=== PATIENT | male | born 1970 | race Caucasian/White ===

== ENCOUNTER 2018-06-21 14:47 | Inpatient (IN) | payer BC, OTHER ==
[2018-06-21] MEDS ORDERED: SODIUM CHLORIDE 0.9% 1,000 ML IV STA (15:41)
[2018-06-21] MEDS ORDERED: ONDANSETRON 4 MG/2 ML VIAL IVP STA (15:56)
--- NOTE | 2018-06-21 15:56 | ED ---
General Adult HPI - General Chief complaint: Overdose Stated complaint: overdose Time Seen by Provider: 06/21/18 15:00 Source: patient, family, RN notes reviewed Mode of arrival: wheelchair Limitations: no limitations - History of Present Illness Initial comments: 47-year-old male who presents emergency Department stating that he took a bunch of his [place]. states all but maybe 10 or so were left in the bottle that he had filled yesterday which was a quantity of 120. Patient states she took probably be 50 believes there is 100 gone. Patient states he took him at 4 AM thinks it was more like 5:00 because that is when he texture. Patient seems very tired according and seems to have some decreased hearing according to the since he states the pills. Patient states she was not trying to commit suicide. states the patient admitted on a text that he was trying to kill himself. Patient states he was drinking last night. Patient states he has not taken anything else since then no other pills and no other drugs and hasn't drank anything today. - Related Data Home Medications Medication Instructions Recorded Confirmed HYDROcodone/APAP 7.5-325MG [[place] 1 tab PO Q6HR PRN 05/19/16 06/21/18 7.5-325] Allergies Allergy/AdvReac Type Severity Reaction Status Date / Time ketorolac tromethamine Allergy Anaphylaxis Verified 06/21/18 17:42 [From Toradol] tramadol Allergy Anaphylaxis Verified 06/21/18 17:42 Review of Systems ROS Statement: Those systems with pertinent positive or pertinent negative responses have been documented in the HPI. ROS Other: All systems not noted in ROS Statement are negative. Past Medical History Past Medical History: Hyperlipidemia Additional Past Medical History / Comment(s): severe arthritis lumbar and cervical History of Any Multi-Drug Resistant Organisms: None Reported Past Surgical History: Orthopedic Surgery Additional Past Surgical History / Comment(s): right leg anyi/screws. bilateral inguinal hernia Past Psychological History: Anxiety, Depression Smoking Status: Current every day smoker Past Alcohol Use History: Occasional Past Drug Use History: Marijuana General Exam - General Exam Comments Initial Comments: GENERAL: Patient is well-developed and well-nourished. Patient is nontoxic and well- hydrated and is in no acute distress. Patient is lethargic but able to answer all questions. ENT: Neck is soft and supple. No significant lymphadenopathy is noted. Oropharynx is clear. Moist mucous membranes. Neck has full range of motion without eliciting any pain. EYES: The sclera were anicteric and conjunctiva were pink and moist. Extraocular movements were intact and pupils are pinpoint. Eyelids were unremarkable. PULMONARY: Unlabored respirations. Good breath sounds bilaterally. No audible rales rhonchi or wheezing was noted. CARDIOVASCULAR: There is a regular rate and rhythm without any murmurs gallops or rubs. ABDOMEN: Soft and nontender with normal bowel sounds. No palpable organomegaly was noted. There is no palpable pulsatile mass. SKIN: Skin is clear with no lesions or rashes and otherwise unremarkable. NEUROLOGIC: Patient is alert and oriented x3. Cranial nerves II through XII are grossly intact. Motor and sensory are also intact. Normal speech, volume and content. Symmetrical smile. MUSCULOSKELETAL: Normal extremities with adequate strength and full range of motion. LYMPHATICS: No significant lymphadenopathy is noted PSYCHIATRIC: Patient states he did take the pills but he states he was not trying to kill himself Limitations: no limitations Course Vital Signs 06/21/18 15:00 Temperature 97.5 F L Pulse Rate 88 Respiratory 20 Rate Blood Pressure 119/85 O2 Sat by Pulse 96 Oximetry Medical Decision Making - Medical Decision Making EKG shows normal sinus rhythm at 74 bpm SC interval 160 QRS is 96 QT interval 390 QTC is 432. Patient's EKG shows no ST segment elevation or depression or T wave abnormalities are noted. - Lab Data Result diagrams: 06/21/18 16:20 06/21/18 16:20 Lab Results 06/21/18 06/21/18 06/21/18 Range/Units 15:28 16:20 16:20 WBC 20.9 H (3.8-10.6) k/uL RBC 5.03 (4.30-5.90) m/uL Hgb 16.7 (13.0-17.5) gm/dL Hct 51.4 (39.0-53.0) % MCV 102.2 H (80.0-100.0) fL MCH 33.2 (25.0-35.0) pg MCHC 32.5 (31.0-37.0) g/dL RDW 12.5 (11.5-15.5) % Plt Count 284 (150-450) k/uL Neutrophils % 92 % Lymphocytes % 4 % Monocytes % 3 % Eosinophils % 1 % Basophils % 0 % Neutrophils # 19.2 H (1.3-7.7) k/uL Lymphocytes # 0.7 L (1.0-4.8) k/uL Monocytes # 0.6 (0-1.0) k/uL Eosinophils # 0.3 (0-0.7) k/uL Basophils # 0.0 (0-0.2) k/uL Macrocytosis Slight Sodium 142 (137-145) mmol/L Potassium 5.5 H (3.5-5.1) mmol/L Chloride 109 H (98-107) mmol/L Carbon Dioxide 18 L (22-30) mmol/L Anion Gap 15 mmol/L BUN 15 (9-20) mg/dL Creatinine 1.00 (0.66-1.25) mg/dL Est GFR (CKD-EPI)AfAm >90 (>60 ml/min/1.73 sqM) Est GFR (CKD-EPI)NonAf 89 (>60 ml/min/1.73 sqM) Glucose 88 (74-99) mg/dL Calcium 9.2 (8.4-10.2) mg/dL Total Bilirubin 0.3 (0.2-1.3) mg/dL AST 45 (17-59) U/L ALT 41 (21-72) U/L Alkaline Phosphatase 59 (38-126) U/L Total Protein 8.4 H (6.3-8.2) g/dL Albumin 5.2 H (3.5-5.0) g/dL Salicylates <1.0 mg/dL Urine Opiates Screen Detected H (NotDetected) Ur Oxycodone Screen Detected H (NotDetected) Urine Methadone Screen Not Detected (NotDetected) Ur Propoxyphene Screen Not Detected (NotDetected) Acetaminophen 84.0 H* ug/mL Ur Barbiturates Screen Not Detected (NotDetected) U Tricyclic Antidepress Not Detected (NotDetected) Ur Phencyclidine Scrn Not Detected (NotDetected) Ur Amphetamines Screen Not Detected (NotDetected) U Methamphetamines Scrn Not Detected (NotDetected) U Benzodiazepines Scrn Detected H (NotDetected) Urine Cocaine Screen Not Detected (NotDetected) U Marijuana (THC) Screen Not Detected (NotDetected) Serum Alcohol 18 mg/dL Critical Care Time Critical Care Time: Yes Total Critical Care Time: 35 Disposition Clinical Impression: Acetaminophen overdose, Suicidal ideation Disposition: ADMITTED IP TO THIS HOSP Referrals: Hortencia Buenrostro MD [Primary Care Provider] - 1-2 days Time of Disposition: 17:34
[2018-06-21 16:07] LABS: Amphetamine Screen,Urine Not Detected (NotDetected); Barbiturate Screen,Urine Not Detected (NotDetected); Benzodiazepines Screen,Urine Detected (NotDetected); Cocaine Screen,Urine Not Detected (NotDetected); Methadone Screen, Urine Not Detected (NotDetected); Opiate Screen,Urine Detected (NotDetected); Oxycodone Screen, Urine Detected (NotDetected); Phencyclidine Screen,Urine Not Detected (NotDetected); Tricyclic Antidepressant,Urine Not Detected (NotDetected); Urn Cannabinoid Scrn Not Detected (NotDetected)
[2018-06-21] MEDS ORDERED: diphenhydrAMINE 50 MG/ML 1 ML VIAL IVP ONE (16:21)
[2018-06-21] MEDS ORDERED: ACETYLCYSTEINE IV 10,200 MG in DEXTROSE 5% IN WATER 200 ML IV ONE ×2 (16:30)
[2018-06-21 16:35] LABS: Basophils % (A) 0 %; Eosinophils # (A) 0.3 k/uL (0-0.7); Eosinophils % (A) 1 %; HCT 51.4 % (39.0-53.0); HGB 16.7 gm/dL (13.0-17.5); Lymphocytes # (A) 0.7 k/uL (1.0-4.8); Lymphocytes % (A) 4 %; MCH 33.2 pg (25.0-35.0); MCHC 32.5 g/dL (31.0-37.0); MCV 102.2 fL (80.0-100.0); Macrocytosis Slight; Mean Platelet Volume 6.6; Monocytes # (A) 0.6 k/uL (0-1.0); Monocytes % (A) 3 %; Neutrophils # (A) 19.2 k/uL (1.3-7.7); Neutrophils % (A) 92 %; Platelet Count 284 k/uL (150-450); RBC 5.03 m/uL (4.30-5.90); RDW 12.5 % (11.5-15.5); WBC 20.9 k/uL (3.8-10.6)
[2018-06-21 16:42] LABS: ALT 41 U/L (21-72); AST 45 U/L (17-59); Albumin 5.2 g/dL (3.5-5.0); Alcohol 18 mg/dL; Alkaline Phosphatase 59 U/L (38-126); Anion Gap 15 mmol/L; Blood Urea Nitrogen 15 mg/dL (9-20); Calcium 9.2 mg/dL (8.4-10.2); Carbon Dioxide 18 mmol/L (22-30); Chloride 109 mmol/L (98-107); Glucose 88 mg/dL (74-99); Potassium 5.5 mmol/L (3.5-5.1); Salicylate <1.0 mg/dL; Sodium 142 mmol/L (137-145); Total Bilirubin 0.3 mg/dL (0.2-1.3); Total Protein 8.4 g/dL (6.3-8.2)
[2018-06-21] MEDS ORDERED: ACETYLCYSTEINE IV 3,400 MG in DEXTROSE 5% IN WATER 500 ML IV ONE ×4 (17:30→18:30)
[2018-06-21] MEDS ORDERED: SODIUM CHLORIDE 0.9% 1,000 ML IV ONE (17:33)
[2018-06-21 21:23] LABS: Glucose,Whole Blood 119 mg/dL (75-99)
[2018-06-21] MEDS ORDERED: ACETYLCYSTEINE IV 6,800 MG in DEXTROSE 5% IN WATER 1,000 ML IV ONE ×4 (21:30→23:00)
[2018-06-21 22:39] LABS: Partial Thromboplastin Time 22.1 sec (22.0-30.0); Prothrombin Time 10.2 sec (9.0-12.0)
[2018-06-21] MEDS: NICOTINE 21MG/24HR PATCH TRANSDERM SCH (23:09)
[2018-06-21] MEDS: ENOXAPARIN 40 MG/0.4 ML SYRINGE SQ SCH (23:09)
--- NOTE | 2018-06-21 23:12 | HP ---
HISTORY AND PHYSICAL DATE OF ADMISSION: June 21, 2018. DATE OF SERVICE: June 21, 2018. PRESENT COMPLAINT: Overdose [place]. HISTORY OF PRESENTING COMPLAINT: A 47-year-old patient follows with Dr. Hortencia Buenrostro. A history of anxiety but does not take any medications, hyperlipidemia, severe osteoarthritis of the cervical and lumbar spine for which she takes [place]. The patient smokes a pack a day. . The patient has been having issues with his and today decided to take a whole bunch of [place]. It seems patient took about at least 50 pills of [place] 7.5, and presented to the ER. Apparently had text his that he wanted to kill himself. Now he does feel stupid about the whole thing. The patient also drinking last night. Normally drinks about 6 beers a day. Denies taking other recreational drugs. The patient started on an in the ER. Does feel tired and run down. REVIEW OF SYSTEMS: CONSTITUTIONAL: Tired and run down. HEENT: None. RESPIRATORY: Occasional cough. CARDIOVASCULAR none. GASTROINTESTINAL none. GENITOURINARY: None. MUSCULOSKELETAL: Chronic backache in the spine. DERMATOLOGICAL, HEMATOLOGIC, LYMPHATIC: None. PSYCHIATRY: Very anxious, some depression. NEUROLOGICAL: None. PAST MEDICAL HISTORY: Hyperlipidemia, severe arthritis of the lumbar cervical spine. PAST SURGICAL HISTORY: Right leg rods and screws, bilateral inguinal hernia. SOCIAL HISTORY: The patient smokes about a pack a day for many years. 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 Drinks about 6 beers at least a day. Does marijuana occasionally. FAMILY HISTORY: Reviewed. Noncontributory to presentation. HOME MEDICATIONS: [place] 7.5 q.6h p.r.n. ALLERGIES: TO TORADOL AND TRAMADOL. PHYSICAL EXAMINATION: VITAL SIGNS: Temperature 97.6, pulse 72, respiratory 18, blood pressure 130/80, pulse ox 96% on 2 L. GENERAL APPEARANCE: Average build, lying in bed, anxious-appearing. EYES: Pupils equal., Conjunctivae normal. HEENT: External appearance of nose and ears normal. Oral cavity normal. NECK: JVD not raised. Mass not palpable. RESPIRATORY: Effort normal. LUNGS: Diminished breath sounds. CARDIOVASCULAR: 1st and 2nd sounds. No edema. ABDOMEN: Soft, nontender. Liver and spleen not palpable. LYMPHATICS: No lymph nodes palpable in the neck and axilla. PSYCHIATRY: Alert and oriented x3. Mood and affect anxious-appearing. NEUROLOGICAL: Pupils equal. Cranial nerves grossly intact. Power and sensation grossly intact. INVESTIGATIONS: White count 20.9, hemoglobin 16.7, potassium 5.5, BUN 50, creatinine 1.0. Acetaminophen 84. Urine drug screen positive for opiates, oxycodone, benzodiazepine. Serum alcohol was 18. EKG normal sinus rhythm. ASSESSMENT: 1. Acute severe acetaminophen overdose in the form of [place]. The patient had taken at least 50 tablets. It is known that this can adversely affect the liver, especially in the setting of patient drinking alcohol. Will have to watch patient's LFTs closely and also the patient is on pro-time. The patient will be admitted to the ICU with close monitoring and neuro checks. 2. Severe osteoarthritis of cervical and lumbar spine. 3. Hyperlipidemia. 4. Anxiety/depression uncontrolled. 5. Chronic nicotine dependence, patient is a cigarette smoker. PLAN: At this point, patient is being given , IV fluids. Lovenox for DVT prophylaxis. We will give nicotine patch. The patient has a sitter. Psychiatry has been consulted. 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 Care was discussed with the patient. Copy to Dr. Hortencia Buenrostro. BROCK / AYLIN: [id number] /
[2018-06-21 23:42] LABS: INR 1.2 (<1.2); Prothrombin Time 11.5 sec (9.0-12.0)
[2018-06-22 04:36] LABS: Basophils % (A) 0 %; Eosinophils # (A) 0.2 k/uL (0-0.7); Eosinophils % (A) 2 %; HCT 41.9 % (39.0-53.0); Lymphocytes # (A) 2.2 k/uL (1.0-4.8); Lymphocytes % (A) 19 %; MCH 33.6 pg (25.0-35.0); MCHC 32.7 g/dL (31.0-37.0); MCV 102.6 fL (80.0-100.0); Macrocytosis Slight; Mean Platelet Volume 6.7; Monocytes # (A) 0.7 k/uL (0-1.0); Monocytes % (A) 6 %; Neutrophils # (A) 8.4 k/uL (1.3-7.7); Neutrophils % (A) 72 %; Platelet Count 215 k/uL (150-450); RBC 4.09 m/uL (4.30-5.90); RDW 12.6 % (11.5-15.5); WBC 11.6 k/uL (3.8-10.6)
[2018-06-22 04:41] LABS: INR 1.2 (<1.2); Prothrombin Time 11.8 sec (9.0-12.0)
[2018-06-22 04:45] LABS: HGB 13.7 gm/dL (13.0-17.5)
[2018-06-22 05:04] LABS: ALT 37 U/L (21-72); AST 44 U/L (17-59); Acetaminophen <10.0 ug/mL; Albumin 3.5 g/dL (3.5-5.0); Alkaline Phosphatase 33 U/L (38-126); Anion Gap 3 mmol/L; Blood Urea Nitrogen 11 mg/dL (9-20); Calcium 7.7 mg/dL (8.4-10.2); Carbon Dioxide 25 mmol/L (22-30); Chloride 106 mmol/L (98-107); Glucose 93 mg/dL (74-99); Magnesium 2.2 mg/dL (1.6-2.3); Phosphorus 2.9 mg/dL (2.5-4.5); Potassium 4.3 mmol/L (3.5-5.1); Sodium 134 mmol/L (137-145); Total Bilirubin 0.3 mg/dL (0.2-1.3); Total Protein 5.9 g/dL (6.3-8.2)
[2018-06-22 05:18] VITALS: BMI 24.5
[2018-06-22] MEDS: ENOXAPARIN 40 MG/0.4 ML SYRINGE SQ SCH (08:47)
[2018-06-22] MEDS: NICOTINE 21MG/24HR PATCH TRANSDERM SCH (08:47)
[2018-06-22] MEDS ORDERED: PANTOPRAZOLE 40 MG/10 ML VIAL IV SCH (09:00)
--- NOTE | 2018-06-22 10:07 | P.CONS ---
History of Present Illness - Reason for Consult Consult date: 06/22/18 Acetaminophen toxicity Requesting physician: Johan Dumas - History of Present Illness 47-year-old male with a history of anxiety depression chronic alcohol consumption admitted with acetaminophen toxicity. Patient states he took a bottle of [place] on Wednesday night with alcohol cannot quantify how many tablets of [place]. Denies consumption of any other types of medications, aspirin or NSAIDs. Admission white count 20.9 presently 11.6. Hemoglobin 16.7 presently 13.7. MCV 102. Platelet 284. INR 1.0-1.2. Total bilirubin 0.3. AST 44-45. ALT 37-41. AP 33-59. BUN 11. Creatinine 0.7. Acetaminophen 84 presently less than 10 receiving intravenous acetylcysteine. Presently reports diffuse mild abdominal pain across the anterior abdomen. Denies hematemesis hematochezia melena. No fever. No history of known liver disorders. Patient has been drinking beer several cans a day for several years. He drank at least 8-10 beers on Wednesday. Review of Systems Constitutional: Denies fever, chills, sweats, weight gain, or loss. HEENT: Negative for migraines, blurred vision or loss, earaches, drainage, tinnitus, oral mucosal lesions, dysphagia, or odynophagia. Cardiac: Negative for chest pain, arrhythmias, or palpitation. Respiratory: Negative for shortness of breath, hemoptysis, cough, or sputum production. Gastrointestinal: See HPI for pertinent findings. Genitourinary: Negative for hematuria, urgency, frequency, polyuria, dysuria, or penile discharge. Musculoskeletal: Negative for muscle aches, swelling, arthritis, and arthralgias. Neurologic: Negative for stroke or TIA. Endocrine: Negative for thyroid problems. Skin: Negative for rash or itching. Psychiatric: history of depression and anxiety Past Medical History Past Medical History: Hyperlipidemia Additional Past Medical History / Comment(s): severe arthritis lumbar and cervical History of Any Multi-Drug Resistant Organisms: None Reported Past Surgical History: Orthopedic Surgery Additional Past Surgical History / Comment(s): right leg anyi/screws. bilateral inguinal hernia Past Anesthesia/Blood Transfusion Reactions: No Reported Reaction Past Psychological History: Anxiety, Depression Smoking Status: Current every day smoker Past Alcohol Use History: Daily Additional Past Alcohol Use History / Comment(s): pt drinks 1 or 2 beers every night after work and drinks about 12 beers each day on the weekends. Past Drug Use History: Marijuana Additional Drug Use History / Comment(s): stated that he uses marijuana occasionally for pain reflief but "not very often" Medications and Allergies Home Medications Medication Instructions Recorded Confirmed Type HYDROcodone/APAP 7.5-325MG [[place] 1 tab PO Q6HR PRN 05/19/16 06/21/18 History 7.5-325] Allergies Allergy/AdvReac Type Severity Reaction Status Date / Time ketorolac tromethamine Allergy Anaphylaxis Verified 06/21/18 17:42 [From Toradol] tramadol Allergy Anaphylaxis Verified 06/21/18 17:42 Physical Exam Vitals: Vital Signs Temp Pulse Resp BP Pulse Ox 06/22/18 09:00 87 24 126/78 96 06/22/18 08:00 98.9 F 82 24 126/80 94 L 06/22/18 07:00 65 16 130/85 97 06/22/18 06:00 70 23 129/80 94 L 06/22/18 05:00 75 15 134/81 97 06/22/18 04:00 98.1 F 66 13 119/70 99 06/22/18 03:00 67 11 L 129/80 97 06/22/18 02:00 66 12 116/81 98 06/22/18 01:00 64 22 132/69 98 06/22/18 00:00 98.5 F 63 21 129/86 97 06/21/18 23:00 74 19 131/79 95 06/21/18 22:11 97 06/21/18 22:00 98.4 F 75 15 139/71 97 06/21/18 20:43 97.6 F 78 18 131/80 96 06/21/18 20:15 97.9 F 75 18 129/80 97 06/21/18 19:27 78 18 140/83 96 06/21/18 18:50 81 18 124/81 96 06/21/18 18:27 78 18 121/81 97 06/21/18 17:57 82 18 134/91 96 06/21/18 17:27 80 18 127/89 96 06/21/18 16:57 76 18 116/86 97 06/21/18 16:27 74 18 125/76 97 06/21/18 15:00 97.5 F L 88 20 119/85 96 Intake and Output 06/21/18 06/22/18 06/22/18 22:59 06:59 14:59 Intake Total 229 1377 993.2 Output Total 1000 700 Balance 229 377 293.2 Intake: IV 229 1377 493.2 Acetylcysteine IV 3,400 129 129 mg In Dextrose 5% in Water 500 ml @ 129.25 mls /hr IV ONCE ONE Rx#: [id number] Acetylcysteine IV 6,800 448 193.2 mg In Dextrose 5% in Water 1,000 ml @ 64.625 mls/hr IV ONCE ONE Rx#: [id number] Sodium Chloride 0.9% 1, 100 800 300 000 ml @ 100 mls/hr IV . Q10H ONE Rx#:[id number] Oral 500 Output: Urine 1000 700 Other: Voiding Method Urinal Urinal Weight 66.9 kg 66.9 kg General appearance: The patient is alert, oriented, in no acute distress. HET: Head is normocephalic and atraumatic. Pupils are equal and reactive. Oropharynx is clear without lesions. Neck: Supple without lymphadenopathy. Trachea midline. Heart: S1 S2. Regular rate and rhythm. Lungs: No crackles or wheezes are heard. Abdomen: Soft, mild tenderness across mid abdomen, nondistended with bowel sounds. No peritoneal signs. No palpable organomegaly or masses. Extremities: Normal skin color and turgor. No cyanosis, rash, ulceration, clubbing, or edema. Radial and pedal pulses are 2/4 bilaterally. Neurological: No focal deficits. Strength and sensation are grossly intact. Results CBC & Chem 7: 06/22/18 04:21 06/22/18 04:21 Labs: Abnormal Lab Results - Last 24 Hours (Table) 06/21/18 06/21/18 06/21/18 Range/Units 15:28 16:20 16:20 WBC 20.9 H (3.8-10.6) k/uL RBC (4.30-5.90) m/uL MCV 102.2 H (80.0-100.0) fL Neutrophils # 19.2 H (1.3-7.7) k/uL Lymphocytes # 0.7 L (1.0-4.8) k/uL INR (<1.2) Sodium (137-145) mmol/L Potassium 5.5 H (3.5-5.1) mmol/L Chloride 109 H (98-107) mmol/L Carbon Dioxide 18 L (22-30) mmol/L POC Glucose (mg/dL) (75-99) mg/dL Calcium (8.4-10.2) mg/dL Alkaline Phosphatase (38-126) U/L Total Protein 8.4 H (6.3-8.2) g/dL Albumin 5.2 H (3.5-5.0) g/dL Urine Opiates Screen Detected H (NotDetected) Ur Oxycodone Screen Detected H (NotDetected) Acetaminophen 84.0 H* ug/mL U Benzodiazepines Scrn Detected H (NotDetected) 06/21/18 06/21/18 06/22/18 Range/Units 21:11 23:24 04:21 WBC (3.8-10.6) k/uL RBC (4.30-5.90) m/uL MCV (80.0-100.0) fL Neutrophils # (1.3-7.7) k/uL Lymphocytes # (1.0-4.8) k/uL INR 1.2 H 1.2 H (<1.2) Sodium (137-145) mmol/L Potassium (3.5-5.1) mmol/L Chloride (98-107) mmol/L Carbon Dioxide (22-30) mmol/L POC Glucose (mg/dL) 119 H (75-99) mg/dL Calcium (8.4-10.2) mg/dL Alkaline Phosphatase (38-126) U/L Total Protein (6.3-8.2) g/dL Albumin (3.5-5.0) g/dL Urine Opiates Screen (NotDetected) Ur Oxycodone Screen (NotDetected) Acetaminophen ug/mL U Benzodiazepines Scrn (NotDetected) 06/22/18 06/22/18 Range/Units 04:21 04:21 WBC 11.6 H (3.8-10.6) k/uL RBC 4.09 L (4.30-5.90) m/uL MCV 102.6 H (80.0-100.0) fL Neutrophils # 8.4 H (1.3-7.7) k/uL Lymphocytes # (1.0-4.8) k/uL INR (<1.2) Sodium 134 L (137-145) mmol/L Potassium (3.5-5.1) mmol/L Chloride (98-107) mmol/L Carbon Dioxide (22-30) mmol/L POC Glucose (mg/dL) (75-99) mg/dL Calcium 7.7 L (8.4-10.2) mg/dL Alkaline Phosphatase 33 L (38-126) U/L Total Protein 5.9 L (6.3-8.2) g/dL Albumin (3.5-5.0) g/dL Urine Opiates Screen (NotDetected) Ur Oxycodone Screen (NotDetected) Acetaminophen ug/mL U Benzodiazepines Scrn (NotDetected) Assessment and Plan (1) Acetaminophen overdose Current Visit: Yes Status: Acute Code(s): T39.1X1A - POISONING BY 4- AMINOPHENOL DERIVATIVES, ACCIDENTAL, INIT SNOMED Code(s): 293267687 Plan: 1. Transaminases INR remains stable at this time. 2. Continue with intravenous acetylcysteine per protocol. 3. CMP PT/INR in a.m. Liquid diet as tolerated. We'll follow with you. Patient was advised if his LFTs INR worsens transfer to tertiary center will be advised. Thank you for this kind referral and the opportunity to participate in the care of your patient. This consultation was discussed with Dr. Brooke. The impression and plan of care have been directed as dictated.
[2018-06-22 11:22] LABS: INR 1.2 (<1.2); Prothrombin Time 11.3 sec (9.0-12.0)
[2018-06-22 11:35] LABS: ALT 37 U/L (21-72); AST 40 U/L (17-59)
--- NOTE | 2018-06-22 13:18 | P.CNPUL ---
History of Present Illness Consult date: 06/22/18 Reason for consult: other Chief complaint: Suicide attempt, [place] overdose, Tylenol toxicity History of present illness: Mr. Baxter is a 47-year-old white male patient of Dr. Buenrostro, who was brought into the emergency department by his family, on 06/21/2018 at 1400 after he reportedly ingested 75 tablets of his [place]. He was having argument with his , is having a lot of personal stress related to marital problems. He previously diagnosed with anxiety, and was on prescription Prozac, and then Zoloft. But was unable to tolerate it, and has stopped the treatment. Not on any prescription medications for his anxiety at this time. He denies any previous suicidal attempts. He reports daily EtOH intake, averages about one beer a day, however on the weekends he reports binge drinking up to 14 beers a day. Occasional marijuana use, no other recreational drugs. His last drink was on Wednesday. Past medical history is positive for hyperlipidemia, chronic back pain on which the patient is on [place]. Patient is a current smoker, 1 pack a day for 25 years. He denies taking anything else. Started on Mucomyst drip for Tylenol toxicity, initial blood work showed an EDC of 20.9, hemoglobin of 16.7, INR 1.2, sodium 142, potassium is 5.5, CO2 18, BUN of 15, creatinine is 1. Urine drug screen was positive for opiates, benzodiazepines, and oxycodone, Tylenol level was 11. Serum alcohol was 18, and salicylate level was less than 1.0. Follow-up blood work from this morning, showed WBC of 11.6, sodium 134, rest of electrolytes and renal profile was within normal limits, Tyelnol level was less than 10. Total bilirubin 0.3, AST 44, up to 45 on today' s labs. ALT 3741. Alkaline phosphatase 3359. Patient remains on Mucomyst drip, patient received a liter bolus of IV 0.9 normal saline, and his maintenance IV is 0.9 normal saline at a rate of KVO. Patient is awake and alert, oriented 3, denies any complaints, no dyspnea, no chest pain, he is calm and cooperative, his is at the bedside. referral rn is at the bedside. Lung sounds are positive for bibasilar crackles, clear at the upper lobes, patient is sinus rhythm on the monitor, no arrhythmias noted, EKG completed in the emergency department showed normal sinus rhythm, he is tolerating clear liquid diet, denies any nausea, or vomiting. Review of Systems All systems: negative Constitutional: Denies chills, Denies fever Eyes: denies blurred vision, denies pain Ears, nose, mouth and throat: Denies headache, Denies sore throat Cardiovascular: Denies chest pain, Denies shortness of breath Respiratory: Denies cough Gastrointestinal: Denies abdominal pain, Denies diarrhea, Denies nausea, Denies vomiting Musculoskeletal: Denies myalgias Integumentary: Denies pruritus, Denies rash Neurological: Denies numbness, Denies weakness Psychiatric: Denies anxiety, Denies depression Endocrine: Denies fatigue, Denies weight change Past Medical History Past Medical History: Hyperlipidemia Additional Past Medical History / Comment(s): severe arthritis lumbar and cervical History of Any Multi-Drug Resistant Organisms: None Reported Past Surgical History: Orthopedic Surgery Additional Past Surgical History / Comment(s): right leg anyi/screws. bilateral inguinal hernia Past Anesthesia/Blood Transfusion Reactions: No Reported Reaction Past Psychological History: Anxiety, Depression Smoking Status: Current every day smoker Past Alcohol Use History: Daily Additional Past Alcohol Use History / Comment(s): pt drinks 1 or 2 beers every night after work and drinks about 12 beers each day on the weekends. Past Drug Use History: Marijuana Additional Drug Use History / Comment(s): stated that he uses marijuana occasionally for pain reflief but "not very often" Medications and Allergies Home Medications Medication Instructions Recorded Confirmed Type HYDROcodone/APAP 7.5-325MG [[place] 1 tab PO Q6HR PRN 05/19/16 06/21/18 History 7.5-325] Allergies Allergy/AdvReac Type Severity Reaction Status Date / Time ketorolac tromethamine Allergy Anaphylaxis Verified 06/21/18 17:42 [From Toradol] tramadol Allergy Anaphylaxis Verified 06/21/18 17:42 Physical Exam Vitals: Vital Signs Temp Pulse Resp BP Pulse Ox 06/22/18 09:00 87 24 126/78 96 06/22/18 08:00 98.9 F 82 24 126/80 94 L 06/22/18 07:00 65 16 130/85 97 06/22/18 06:00 70 23 129/80 94 L 06/22/18 05:00 75 15 134/81 97 06/22/18 04:00 98.1 F 66 13 119/70 99 06/22/18 03:00 67 11 L 129/80 97 06/22/18 02:00 66 12 116/81 98 06/22/18 01:00 64 22 132/69 98 06/22/18 00:00 98.5 F 63 21 129/86 97 06/21/18 23:00 74 19 131/79 95 06/21/18 22:11 97 06/21/18 22:00 98.4 F 75 15 139/71 97 06/21/18 20:43 97.6 F 78 18 131/80 96 06/21/18 20:15 97.9 F 75 18 129/80 97 06/21/18 19:27 78 18 140/83 96 06/21/18 18:50 81 18 124/81 96 06/21/18 18:27 78 18 121/81 97 06/21/18 17:57 82 18 134/91 96 06/21/18 17:27 80 18 127/89 96 06/21/18 16:57 76 18 116/86 97 06/21/18 16:27 74 18 125/76 97 06/21/18 15:00 97.5 F L 88 20 119/85 96 Intake and Output 06/21/18 06/22/18 06/22/18 22:59 06:59 14:59 Intake Total 229 1377 993.2 Output Total 1000 700 Balance 229 377 293.2 Intake: IV 229 1377 493.2 Acetylcysteine IV 3,400 129 129 mg In Dextrose 5% in Water 500 ml @ 129.25 mls /hr IV ONCE ONE Rx#: [id number] Acetylcysteine IV 6,800 448 193.2 mg In Dextrose 5% in Water 1,000 ml @ 64.625 mls/hr IV ONCE ONE Rx#: [id number] Sodium Chloride 0.9% 1, 100 800 300 000 ml @ 100 mls/hr IV . Q10H ONE Rx#:[id number] Oral 500 Output: Urine 1000 700 Other: Voiding Method Urinal Urinal Weight 66.9 kg 66.9 kg GENERAL EXAM: Alert, pleasant and cooperative 47-year-old white male, comfortable in no apparent distress. HEAD: Normocephalic/atraumatic. EYES: Normal reaction of pupils, equal size. Conjunctiva pink, sclera white. NOSE: Clear with pink turbinates. THROAT: No erythema or exudates. NECK: No masses, no JVD, no thyroid enlargement, no adenopathy. CHEST: No chest wall deformity. Symmetrical expansion. LUNGS: Equal air entry with bibasilar crackles, no rhonchi, no wheezes. CVS: Regular rate and rhythm, normal S1 and S2, no gallops, no murmurs, no rubs ABDOMEN: Soft, nontender. No hepatosplenomegaly, normal bowel sounds, no guarding or rigidity. EXTREMITIES: No clubbing, no edema, no cyanosis, 2+ pulses and upper and lower extremities. MUSCULOSKELETAL: Muscle strength and tone normal. SPINE: No scoliosis or deformity SKIN: No rashes CENTRAL NERVOUS SYSTEM: Alert and oriented -3. No focal deficits, tone is normal in all 4 extremities. PSYCHIATRIC: Alert and oriented -3. Appropriate affect. Intact judgment and insight. Results - Laboratory Findings CBC and BMP: 06/22/18 04:21 06/22/18 04:21 PT/INR, D-dimer PT 11.3 sec (9.0-12.0) 06/22/18 10:58 INR 1.2 (<1.2) H 06/22/18 10:58 Abnormal lab findings: Abnormal Labs 06/21/18 06/21/18 06/21/18 15:28 16:20 16:20 WBC 20.9 H RBC MCV 102.2 H Neutrophils # 19.2 H Lymphocytes # 0.7 L INR Sodium Potassium 5.5 H Chloride 109 H Carbon Dioxide 18 L POC Glucose (mg/dL) Calcium Alkaline Phosphatase Total Protein 8.4 H Albumin 5.2 H Urine Opiates Screen Detected H Ur Oxycodone Screen Detected H Acetaminophen 84.0 H* U Benzodiazepines Scrn Detected H 06/21/18 06/21/18 06/22/18 21:11 23:24 04:21 WBC RBC MCV Neutrophils # Lymphocytes # INR 1.2 H 1.2 H Sodium Potassium Chloride Carbon Dioxide POC Glucose (mg/dL) 119 H Calcium Alkaline Phosphatase Total Protein Albumin Urine Opiates Screen Ur Oxycodone Screen Acetaminophen U Benzodiazepines Scrn 06/22/18 06/22/18 06/22/18 04:21 04:21 10:58 WBC 11.6 H RBC 4.09 L MCV 102.6 H Neutrophils # 8.4 H Lymphocytes # INR 1.2 H Sodium 134 L Potassium Chloride Carbon Dioxide POC Glucose (mg/dL) Calcium 7.7 L Alkaline Phosphatase 33 L Total Protein 5.9 L Albumin Urine Opiates Screen Ur Oxycodone Screen Acetaminophen U Benzodiazepines Scrn - Diagnostic Findings Additional studies: EKG reviewed Assessment and Plan Plan: Assessment: #1. Suicidal ideation and suicidal attempt #2. Acetaminophen overdose #3. History of anxiety #4. Daily EtOH use, binge drinking on the weekends #5. Leukocytosis #6. Hyperlipidemia #7. Chronic and ongoing nicotine dependence, 1 pack a day for 25 years #8. Chronic back pain #9. Occasional marijuana use. Plan: Continue Acetadote infusion until 1900 tonight, his LFTs remain stable. No evidence of DTs. Hemodynamically stable, no arrhythmias, mentation is appropriate. Maintain product safety coordinator, we'll consult psychiatry. If patient remains stable tonight, a consider transferring patient out from the intensive care unit. I performed a history & physical examination of the patient and discussed their management with my nurse practitioner, Miya Ly. I reviewed the nurse practitioner's note and agree with the documented findings and plan of care. Lung sounds are positive for bibasilar crackles. The findings and the impression was discussed with the patient. I attest to the documentation by the nurse practitioner. Time with Patient: Greater than 30
--- NOTE | 2018-06-22 16:33 | P.CN ---
Psychiatric Consult - . Consult date: 06/22/18 Consult:: 06/22/18 16:17 Identification: Patient is a 47-year-old male who presented to the emergency room after he had taken 50 or so [place] 7.5 mg tabs on Wednesday night, drank about 10 beers took one Ativan passed out in a hotel and when he awakened later in the afternoon called his to bring him to the hospital. Reason for Consult: Suicide attempt History of Present Illness: Patient's chart was reviewed, the patient was seen and interviewed in his room no family members were present. Patient states that he and his have been arguing and having marital problems because he was caught with someone else. Patient states he had a 1 night stand with a woman that he picked up in a bar. He states that she contacted him and his found out by looking at his phone. He states they have been arguing all weekend he took off and went to hotel where he drank 10 beers, took 50-70 [place]' s and states he hasn't have any idea why he took some states he was not interested in dying but was drunk when he did it. States that he also had an Ativan from some other time and took that as well. Patient states he can't explain why did it and states that it was a dumb and stupid move. Patient states that he has never attempted suicide in the past and has never received any treatment for depression. Patient states that he has been using alcohol since the age of 16. He quit in 2011 that time he was drinking 12 or more beers a day. States he was sober until 2016 and restarted drinking in October 2017 is unable to tell me why. He states he drinks 1-2 beers Wednesday through Wednesday and 12 or more beers a day Wednesday and Wednesday. He states he does have blackouts when he drinks has never had any seizures with withdrawal and states he gets shaky and sweaty when he is withdrawing but describes no DTs. Patient states that he doesn't use any liquor, states that he's been on [place] 7.5 for a number of years for his osteoarthritis in his neck and back. Patient does not endorse any symptoms of depression, denies feeling hopeless or helpless, denies any prior suicidal ideation or attempts. Patient denies any auditory or visual hallucinations and no paranoid or delusional ideations currently or in the past. Patient denies any manic symptoms currently and does not endorse any manic symptoms in the past. Patient states that he has high anxiety which she describes as feeling shaky on the inside and states he feels this way all the time and sometimes it prevents him from sleeping or eating. Patient states that he's been placed on Zoloft and Prozac in the past but had a headache and GI problems and stopped both medications and these were begun for his anxiety. Patient states that he is not currently feeling depressed, denies feeling hopeless or helpless, denies any current suicidal ideation and states that he is not having any withdrawal symptoms. Past Psychiatric History: Patient denied any prior treatment however her the nurse his stated that the patient had been in [facility] when I questioned him about that he stated that yes he had in 2011 and that was for alcohol use and the reason that he became sober in 2011. Patient denies any other inpatient treatment and has been tried on Zoloft and Prozac by his primary care physician for his complaints of anxiety. Past Medical/Surgical History: Patient has a history of hyperlipidemia and osteoarthritis he denies any surgical history Family History: Patient states is no psychiatric history in the family and states that his siblings do use alcohol and no completed suicides. Social History: Patient was born and raised in [place] both of his parents are and they were while he was growing up. He has 3 brothers and 3 sisters and is the youngest of 7. Patient completed high school and began working. 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 Patient had a son when he was 21 years of age he was not to his mother. Patient has been for 5 years and they have no children. Patient lives with his and their dogs. He states that they had a good relationship until he had a 1 night stand with someone he met a disla. Patient denies any financial problems and denies any history of abuse. Substance Use History: Patient states he began using alcohol at the age of 16 and was drinking 12 or more beers a day when he stopped in 2011. He was sober from 2011 until October 2017 when he restarted drinking is unable to tell me why. He currently drinks 1-2 beers Wednesday through Wednesday and 12 or more beers on Wednesday and Wednesday. Patient reports blackouts but no seizures. Patient states he uses marijuana once a month and used in high school on a daily basis. He denied any IV drug use any benzodiazepine use methamphetamines amphetamines or any other drugs. Patient states that he does use tobacco products. Legal History: Patient has a history of 4 DUIs and does not have a peg driver's license and does not drive Mental status: Appearance/Attitude: Patient is sitting in a hospital bed in no acute distress, makes good eye contact and is cooperative. Behavior: Patient did not display any psychomotor agitation or retardation. Speech/Language: Speech was spontaneous of normal volume and rhythm and he is coherent. Thought Process: Patient was goal-directed there is no evidence of loose association or flight of ideas Thought Content: Patient denies any auditory or visual hallucinations no paranoid or delusional ideation was elicited. Patient states he is not hopeless or helpless, denies feeling depressed, states that he does have anxiety where he feels shaky on the inside all the time and at times like this he can't sleep or eat. Patient states that he and his have been arguing after she found out he had a one night stand and so he left to go to a hotel where he drank, took [place]'s and one Ativan states that it was a stupid move and doesn't know why he did it. Suicidal/Homicidal Ideation: Patient denies any current suicidal or homicidal ideation Sensorium/Cognition: Patient is alert and oriented to person, place, and time and his recent and remote memory are grossly intact Mood/Affect: Patient's mood is euthymic and his affect is appropriate Insight/Judgment: Patient's insight and judgment are fair Assessment: Patient presents after having argued with his about a one night stand, patient went to a hotel drank 10 or so beers and then took 50 or so [place]'s and Y Ativan cannot explain to me why he did this dating that he did not plan on killing himself and states that he sees it now as a dumb idea. Patient states that he has never attempted suicide, patient has been treated for anxiety in the past with both Prozac and Zoloft and complained of side effects and stopped the medications. Patient forgot that he had been in [facility] in 2011 for his alcohol use and this is how he got sober in 2011 and was sober for the next 5 years. Patient's completed a petition that states that the patient drinks, becomes angry has been abusive and has made suicidal statements. Patient has no history of psychotic symptoms, manic symptoms or depressive symptoms. A MAPS was done on the patient showing that he picked up [place] 7.5 #120 on June 17 and had picked up prior prescriptions on May 20 and April 22. Patient states that he's been on [place]'s for greater than 2 years. Patient's blood alcohol level on admission was 0.0-8. His UDS was positive for oxycodone code own and benzodiazepines. Diagnosis: Alcohol use disorder, moderate severity Plan: Patient currently is denying any suicidal ideation, states that he was not attempting suicide and can't tell me why he took the [place]'s drank alcohol and took one Ativan when he was in a hotel. Patient when he awakened contacted his brought him to the hospital. Patient states that he is not interested in inpatient alcohol treatment because he needs to work. Patient states that he is aware he needs to stop drinking and will stop again. Patient has not been attending AA meetings. Patient does not endorse any psychotic symptoms, there is no evidence of any depressive symptoms or manic symptoms. Patient is are having marital difficulty secondary to the patient's 1 night stand. Will currently stop the patient's one-to-one sitter as the patient is not currently suicidal. Will return and reassess the patient in I discussed the patient to strongly consider going for inpatient alcohol rehab. At this time I will not begin any psychotropic medication, I also discussed with the patient alf side effects of alcohol use, the risks using alcohol and the opiates together. I will follow with the patient and evaluate whether the patient needs an inpatient psychiatric admission. 06/22/18 16:30
[2018-06-22 17:39] LABS: INR 1.2 (<1.2); Prothrombin Time 11.6 sec (9.0-12.0)
[2018-06-22 17:45] LABS: ALT 36 U/L (21-72); AST 40 U/L (17-59); Acetaminophen <10.0 ug/mL
[2018-06-22] MEDS ORDERED: NICOTINE POLACRILEX 2 MG GUM BUCCAL PRN (20:50)
[2018-06-22] MEDS: FAMOTIDINE 20 MG TAB PO SCH (21:45)
[2018-06-22] MEDS: IPRATROPIUM-ALBUTEROL 3 ML NEB INHALATION SCH (21:57)
--- NOTE | 2018-06-22 22:01 | PN ---
PROGRESS NOTE DATE OF SERVICE: 06/22/2018 PRESENTING COMPLAINT: [place] overdose. INTERVAL HISTORY: This patient presented with [place] overdose. He also drinks alcohol and smokes cigarettes. Did complete a dose of N-acetylcysteine. LFTs have been fine. Patient has been slightly anxious; did eat some. Patient's is present. The patient was seen by the psychiatrist and his sitter was taken off. Patient is not feeling suicidal; feeling stupid about his action, though a bit anxious. He does he just wants to make things better. He had a one-night stand and that is why there was discontent between him and his . REVIEW OF SYSTEMS: Done for constitutional, cardiovascular, GI, pulmonary; relevant findings as above. CURRENT MEDICATIONS: Current medications include nicotine patch, Protonix, Lovenox. PHYSICAL EXAMINATION: On examination, pulse 72, respiration 19, blood pressure 119/76, pulse ox 96% on room air. GENERAL APPEARANCE: Sitting up in a chair, awake, slightly anxious. EYES: Pupils equal. Conjunctivae normal. HEENT: External appearance of nose and ears normal. Oral cavity normal. NECK: JVD not raised. Mass not palpable. RESPIRATORY: Effort normal. LUNGS: Decreased breath sounds. Minimal wheezing. CARDIOVASCULAR: First and second sounds normal. No edema. ABDOMEN: Soft, non-tender. Liver and spleen not palpable. PSYCHIATRY: Alert and oriented x3. Mood and affect anxious-appearing. INVESTIGATIONS: White count 11.6, hemoglobin 13.7, potassium 4.3. ASSESSMENT: 1. Acute severe acetaminophen overdose in the form of [place]. Patient has completed a course of N-acetylcysteine. LFTs have remained normal. 2. Severe osteoarthritis of the cervicolumbar spine. 3. Hyperlipidemia. 4. Anxiety and depression, non-specific. 5. Chronic nicotine dependence. Patient is a cigarette smoker. 6. Chronic alcohol dependence. PLAN: I had a very lengthy talk with the patient and his about multiple aspects of smoking and alcohol. Patient's also smokes. They are trying to work out a plan that they will stop doing the same. Will also give nicotine gum. Initially I told to let the patient go home but did tell the nurse that the psychiatrist did want to come back in and and see the patient tomorrow. Hence we will hold off discharge until tomorrow. The patient has got some wheezing; hence will give some bronchodilators. A lot of time was spent with the patient and his talking about different aspects. Total time spent today was about 40 minutes with over 25 minutes of discussion. The patient will be moved out of the ICU. BROCK / AYLIN: [id number] /
[2018-06-23 06:18] VITALS: RESP 16
[2018-06-23] MEDS: IPRATROPIUM-ALBUTEROL 3 ML NEB INHALATION SCH ×3 (07:16→15:35)
[2018-06-23 07:42] LABS: Basophils % (A) 0 %; Eosinophils # (A) 0.2 k/uL (0-0.7); Eosinophils % (A) 2 %; HCT 44.2 % (39.0-53.0); HGB 14.3 gm/dL (13.0-17.5); Lymphocytes # (A) 1.9 k/uL (1.0-4.8); Lymphocytes % (A) 22 %; MCH 33.2 pg (25.0-35.0); MCHC 32.3 g/dL (31.0-37.0); MCV 102.8 fL (80.0-100.0); Macrocytosis Slight; Mean Platelet Volume 6.4; Monocytes # (A) 0.5 k/uL (0-1.0); Monocytes % (A) 6 %; Neutrophils # (A) 5.8 k/uL (1.3-7.7); Neutrophils % (A) 68 %; Platelet Count 211 k/uL (150-450); RDW 12.5 % (11.5-15.5); WBC 8.5 k/uL (3.8-10.6)
[2018-06-23] MEDS: NICOTINE 21MG/24HR PATCH TRANSDERM SCH (07:53)
[2018-06-23] MEDS: ENOXAPARIN 40 MG/0.4 ML SYRINGE SQ SCH (07:53)
[2018-06-23] MEDS: FAMOTIDINE 20 MG TAB PO SCH (07:54)
[2018-06-23 07:58] LABS: Magnesium 2.1 mg/dL (1.6-2.3); Phosphorus 1.6 mg/dL (2.5-4.5)
--- NOTE | 2018-06-23 10:01 | P.PN ---
Subjective Progress Note Date: 06/23/18 Principal diagnosis: Acetaminophen toxicity drug overdose 47-year-old male admitted with attempted drug overdose acetaminophen toxicity. LFTs stable. Acetaminophen level less than 10. Denies abdominal pain. Tolerating a diet. Afebrile. Objective - Vital Signs Vital signs: Vital Signs Temp 98.0 F 06/23/18 05:00 Pulse 59 L 06/23/18 07:53 Resp 16 06/23/18 07:53 BP 142/85 06/23/18 05:00 Pulse Ox 97 06/23/18 05:00 Intake & Output 06/22/18 06/23/18 06/23/18 18:59 06:59 18:59 Intake Total 3140.8 1070 Output Total 3250 1 Balance -109.2 1069 Weight 66.9 kg Intake: IV 1680.8 Acetylcysteine IV 6,800 580.8 mg In Dextrose 5% in Water 1,000 ml @ 64.625 mls/hr IV ONCE ONE Rx#: [id number] Sodium Chloride 0.9% 1, 1100 000 ml @ 100 mls/hr IV . Q10H ONE Rx#:[id number] Oral 1460 1070 Output: Urine 3250 1 Other: Voiding Method Urinal Toilet Toilet Urinal Urinal # Voids 2 - Exam General appearance: The patient is alert, oriented, in no acute distress. HET: Head is normocephalic and atraumatic. Pupils are equal and reactive. Oropharynx is clear without lesions. Neck: Supple without lymphadenopathy. Trachea midline. Heart: S1 S2. Regular rate and rhythm. Lungs: No crackles or wheezes are heard. Abdomen: Soft, nontender, nondistended with bowel sounds. No peritoneal signs. No palpable organomegaly or masses. Extremities: Normal skin color and turgor. No cyanosis, rash, ulceration, clubbing, or edema. Radial and pedal pulses are 2/4 bilaterally. Neurological: No focal deficits. Strength and sensation are grossly intact. - Labs CBC & Chem 7: 06/23/18 07:02 06/22/18 04:21 Labs: Abnormal Lab Results - Last 24 Hours (Table) 06/22/18 06/22/18 06/23/18 Range/Units 10:58 17:20 07:02 MCV 102.8 H (80.0-100.0) fL INR 1.2 H 1.2 H (<1.2) Phosphorus (2.5-4.5) mg/dL 06/23/18 Range/Units 07:02 MCV (80.0-100.0) fL INR (<1.2) Phosphorus 1.6 L (2.5-4.5) mg/dL Assessment and Plan (1) Acetaminophen overdose Current Visit: Yes Status: Acute Code(s): T39.1X1A - POISONING BY 4- AMINOPHENOL DERIVATIVES, ACCIDENTAL, INIT SNOMED Code(s): 194762787 Plan: 1. Transaminases INR remains stable at this time. We'll follow as needed. Discharge per medicine. Assessment and plan a care discussed with Dr. Brooke
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
[2018-06-23 15:29] VITALS: BP 132/86; TEMP 98.1
[2018-06-23 15:48] VITALS: PULSE 68
--- NOTE | 2018-06-23 16:37 | P.PN ---
Progress Note - Text Progress Note Date: 06/23/18 Interval History: Patient is a 47-year-old male who is being seen in follow-up to a consultation performed yesterday. Patient states that he and his spoke yesterday when she visited him and they got along well and she is permitting him to return home. Patient states that he is interested in outpatient rehab programs and states that his employment has an EAP that can provide referrals for him. Patient states that he is not feeling suicidal and states that he is not feeling depressed. States that he is aware that he needs to stop using alcohol as it has created great difficulties for him. Patient states he is not having any withdrawal symptoms stated that he slept well last night and is eating this morning. He denied feeling hopeless or helpless. Mental Status: Appearance/Attitude: Patient is sitting in the hospital bed in a gown, makes good eye contact and was cooperative. Behavior: Patient does not display any psychomotor agitation or retardation Speech/Language: Patient's speech is spontaneous of normal volume and rhythm and he is coherent Thought Process: Patient's thought processes are goal-directed there is no evidence of loose association or flight of ideas Thought Content: Patient denies any auditory or visual hallucinations and no delusions or paranoid ideation or elicited. Patient denies feeling hopeless helpless or worthless and states that he has been sleeping and eating well in the hospital. Patient discussed that a visit from his last night went well and he also sees that he needs to stop drinking. Patient was aware of the difficulties that alcohol is created for him. Suicidal/Homicidal Ideation: Patient denied any current suicidal or homicidal ideation Sensorium/Cognition: Patient is alert and oriented to person, place, and time and his recent and remote memory are grossly intact Mood/Affect: Patient mood is euthymic and his affect is appropriate Insight/Judgment: Patient's insight and judgment are fair Assessment: Patient and I had a long discussion regarding the consequences of risks of continuing to use alcohol, I also discussed with the patient the interactions between alcohol and opiates. Patient states that he will be able to return home to live with his , plans on contacting his EAP at work for referrals for outpatient alcohol rehab. Patient states that he understands he needs to stop drinking and sees that it has created problems for him. Patient did not verbalize any suicidal thoughts today and states that he is not feeling hopeless, helpless or worthless and has no symptoms of depression. Plan: Patient and I discussed his following up with his EAP regarding outpatient alcohol rehab programs and I also gave him a list of agencies that have outpatient rehab programs. Patient was agreeable with this plan. Patient does not require any psychotropic medication. I advised the patient to discuss with his physician other options to control his pain instead of opiates. I advised the patient to remain sober and attend AA meetings and obtain a sponsor. Patient does not require transfer to an inpatient psychiatric unit. I will sign off the case.
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
== END 2018-06-23 17:05 | disposition home or self-care (01) | DRG 918 ==
LOC: EC 14:47 → 6ICU 17:33 → 5MS5E 06-22 22:24
PROVIDERS: ADMIT Hospitalist; ATTEND Hospitalist
DX: T39.1X2A Poisoning by 4-Aminophenol derivatives, intentional self-harm, initial encounter (principal); D72.829 Elevated white blood cell count, unspecified; E78.5 Hyperlipidemia, unspecified; F10.20 Alcohol dependence, uncomplicated; F17.210 Nicotine dependence, cigarettes, uncomplicated; F32.9 Major depressive disorder, single episode, unspecified; F41.9 Anxiety disorder, unspecified; G89.29 Other chronic pain; M47.812 Spondylosis without myelopathy or radiculopathy, cervical region; M47.816 Spondylosis without myelopathy or radiculopathy, lumbar region; Z88.5 Allergy status to narcotic agent; Y92.009 Unspecified place in unspecified non-institutional (private) residence as the place of occurrence of the external cause
CPT/HCPCS: 36415; 80053; 80306; 80320; 82075; 83520; 83735; 84100; 84450; 84460; 85025; 85610; 85730; 93005; 94640; 96361; 96365; 96366; 96375; 99285

== ENCOUNTER 2020-05-02 20:04 | Emergency (ER) | payer BC ==
[2020-05-02 21:02] VITALS: BP 110/75; PULSE 90; RESP 18; TEMP 98.2
[2020-05-02] MEDS ORDERED: HYDROcodone/APAP 10-325MG 1 EACH TAB PO ONE (21:04)
--- NOTE | 2020-05-02 21:04 | ED ---
Upper Extremity HPI - General Chief Complaint: Extremity Injury, Upper Stated Complaint: Shoulder/Neck Pain Time Seen by Provider: 05/02/20 20:38 Source: patient Mode of arrival: ambulatory Limitations: no limitations - History of Present Illness Initial Comments: 49-year-old male patient presents to the emergency department today reporting right shoulder pain. Patient states that he has been having this pain for the last 3-4 weeks. States he has been evaluated by his physician and is awaiting an MRI on May 16. Patient states the pain is in the right side of his neck into his shoulder. States occasionally does radiate down the right arm. States it hurts worse with movement. States he does have Tylenol 3 at home but they're not helping. Denies any numbness or tingling to his hand. Denies any new or previous injury causing the pain. Denies swelling to the arm. Patient denies any headache, back pain, chest pain, shortness of breath, dizziness, weakness, abdominal pain, nausea, vomiting, or difficulties with bowel movements or urination. - Related Data Home Medications Medication Instructions Recorded Confirmed HYDROcodone/APAP 7.5-325MG [[place] 1 tab PO Q6HR PRN 05/19/16 06/21/18 7.5-325] Previous Rx's Medication Instructions Recorded Melatonin 3 mg PO HS #1 tablet 06/22/18 Nicotine 21Mg/24Hr Patch [Habitrol] 1 patch TRANSDERM DAILY #30 patch 06/22/18 Hydrocodone/Acetaminophen [[place] 1 tab PO Q6HR PRN #12 tab 05/02/20 5-325] Ibuprofen [Motrin] 600 mg PO Q8HR PRN #30 tab 05/02/20 Allergies Allergy/AdvReac Type Severity Reaction Status Date / Time ketorolac tromethamine Allergy Anaphylaxis Verified 05/02/20 20:26 [From Toradol] tramadol Allergy Anaphylaxis Verified 05/02/20 20:26 Review of Systems ROS Statement: Those systems with pertinent positive or pertinent negative responses have been documented in the HPI. ROS Other: All systems not noted in ROS Statement are negative. Past Medical History Past Medical History: Hyperlipidemia Additional Past Medical History / Comment(s): severe arthritis lumbar and cervical History of Any Multi-Drug Resistant Organisms: None Reported Past Surgical History: Orthopedic Surgery Additional Past Surgical History / Comment(s): right leg anyi/screws. bilateral inguinal hernia Past Anesthesia/Blood Transfusion Reactions: No Reported Reaction Past Psychological History: Anxiety, Depression Smoking Status: Current every day smoker Past Alcohol Use History: Daily Past Drug Use History: Marijuana General Exam Limitations: no limitations General appearance: alert, in no apparent distress, other (This is a well- developed, well-nourished adult male patient in no acute distress. Vital signs upon presentation are temperature 98.3F, pulse 95, respirations 20, blood pressure 108/79, pulse ox 98% on room air.) Neck exam: Present: normal inspection, full ROM. Absent: tenderness, meningismus, lymphadenopathy Respiratory exam: Present: normal lung sounds bilaterally. Absent: respiratory distress, wheezes, rales, rhonchi, stridor Cardiovascular Exam: Present: regular rate, normal rhythm, normal heart sounds. Absent: systolic murmur, diastolic murmur, rubs, gallop, clicks Extremities exam: Present: normal inspection, full ROM, normal capillary refill, other (Skin to the right arm is pink, warm, dry. Cap refills less than 3 seconds. Radial pulses 2+ and equal bilaterally. There is full range of motion of the right shoulder with increased pain with abduction and forward flexion.). Absent: tenderness, pedal edema, joint swelling, calf tenderness Neurological exam: Present: alert, oriented X3, CN II-XII intact Psychiatric exam: Present: normal affect, normal mood Skin exam: Present: warm, dry, intact, normal color. Absent: rash Course Vital Signs 05/02/20 05/02/20 20:22 21:01 Temperature 98.3 F 98.2 F Pulse Rate 95 90 Respiratory 20 18 Rate Blood Pressure 108/79 110/75 O2 Sat by Pulse 98 97 Oximetry Medical Decision Making - Medical Decision Making 49-year-old male patient presents to the emergency department today for evaluation of right shoulder pain. Physical examination is unremarkable. Neurovascular status is intact. Patient had the pain for the last 3-4 weeks and does have an MRI on May 16. He'll be given a prescription for pain medication. He was informed that he will not be able to receive any further narcotic pr escriptions from this emergency department and he is instructed to follow-up with the primary care physician for further evaluation. He did sign an opiate consent form. Return parameters were discussed in detail. He verbalizes understanding and agrees with this plan. Disposition Clinical Impression: Right shoulder injury Disposition: HOME SELF-CARE Condition: Good Instructions (If sedation given, give patient instructions): Rotator Cuff Injury (ED) Additional Instructions: Use medication sparingly for pain control. Follow-up with your doctor for further evaluation as soon as possible. Return to the emergency department immediately for any new, worsening, or concerning symptoms. Prescriptions: Ibuprofen [Motrin] 600 mg PO Q8HR PRN #30 tab PRN Reason: Pain Hydrocodone/Acetaminophen [[place] 5-325] 1 tab PO Q6HR PRN #12 tab PRN Reason: Pain Is patient prescribed a controlled substance at d/c from ED?: Yes When asked, does pt state using other controlled substances?: No If prescribed controlled substance>3 days was MAPS reviewed?: Prescribed <3 Days If opioid is for acute pain is fill amount 7 days or less?: Yes If Rx opioid, was Start Talking consent form obtained?: Yes Referrals: Alyce Ramires MD [REFERRING] - 1-2 days Time of Disposition: 21:04
== END 2020-05-02 21:12 | disposition home or self-care (01) ==
LOC: EC 20:04
DX: S49.91XA Unspecified injury of right shoulder and upper arm, initial encounter (principal); F17.200 Nicotine dependence, unspecified, uncomplicated; Z88.5 Allergy status to narcotic agent; Z88.6 Allergy status to analgesic agent; X58.XXXA Exposure to other specified factors, initial encounter
CPT/HCPCS: 99283

== ENCOUNTER → 2020-05-17 | Outpatient (CLI) | payer BC ==
--- NOTE | 2020-05-17 11:43 | MR ---
EXAMINATION TYPE: MR ana/jaden wo con DATE OF EXAM: 05/17/2020 COMPARISON: NONE HISTORY: Neck and Lower back pain. Pain and Numbness goes into Right arm and down both legs. TECHNIQUE: T1 and T2 axial and sagittal images of the lumbar spine are submitted. FINDINGS: There is no abnormal signal seen within the visualized spinal cord or paraspinal soft tissu es. At L1-2 there is no degenerative disc disease, disc herniation or canal stenosis. At L2-3 there is disc desiccation. Mild circumferential disc bulging. No canal stenosis or focal laura iation. At L3-4 there is disc desiccation with circumferential disc bulging. There is facet hypertrophy and l igamentum flavum hypertrophy. No significant foraminal encroachment. No Canal stenosis. At L4-5 there is degenerative disc disease and facet arthropathy with circumferential disc bulging. V ertebral body hemangioma L4. Neural foramina remain patent. At L5-S1 there is no degenerative disc disease, disc herniation or canal stenosis. There is facet art hropathy. IMPRESSION: 1. Multilevel degenerative disc disease with disc bulging at L2-3, L3-4 and L4-5. No canal stenosis o r focal herniation. EXAMINATION TYPE: MR ana/jaden wo con DATE OF EXAM: 05/17/2020 COMPARISON: NONE HISTORY: Neck and Lower back pain. Pain and Numbness goes into Right arm and down both legs. TECHNIQUE: T1 sagittal and coronal, T2 sagittal, and gradient echo axial views of the cervical spine are submitted. FINDINGS: The cranial cervical junction is preserved. There is no abnormal signal seen within the sp inal cord or paraspinal soft tissues. At C2-3 there is no degenerative disc disease or canal stenosis. Hypertrophic change. No foraminal en croachment. At C3-4 there is facet arthropathy uncovertebral joint projecting. There is mild to moderate bilatera l foraminal encroachment. Degenerative disc disease noted. There is a right paracentral disc bulge or small protrusion but no canal stenosis. At C4-5 there is uncovertebral joint hypertrophy and facet arthropathy with moderate left foraminal e ncroachment. No Canal stenosis. No foraminal encroachment. At C5-6 there is severe degenerative disc disease and hypertrophic spurring with facet arthropathy an d uncovertebral joint hypertrophy. Moderate to severe bilateral foraminal encroachment and mild to mo derate canal stenosis. Broad-based disc protrusion capped by spur. At C6-7 there is severe degenerative disc disease and hypertrophic spurring with facet arthropathy an d uncovertebral joint hypertrophy. Moderate to severe bilateral foraminal encroachment and mild to mo derate canal stenosis. Broad-based disc protrusion capped by spur At C7-T1 there is no disc herniation or canal stenosis. No foraminal encroachment. Degenerative disc disease and disc bulging seen on the sagittal images within the upper thoracic spin e. IMPRESSION: 1. Multilevel degenerative disc disease with severe changes at C5-6 and C6-C7. At both levels or dis c protrusion capped by spur resulting in canal stenosis and bilateral foraminal encroachment. 2. A right paracentral disc bulge C3-C4 with no evidence of canal stenosis. Uncovertebral joint hyper trophy contributes to bilateral foraminal encroachment.
== END | disposition home or self-care (01) ==
LOC: RADMRIMAIN 10:16
PROVIDERS: ATTEND Internal Medicine
DX: M50.322 Other cervical disc degeneration at C5-C6 level (principal); M51.36 Other intervertebral disc degeneration, lumbar region
CPT/HCPCS: 72141; 72148

== ENCOUNTER → 2020-08-27 | Outpatient (CLI) | payer BC ==
--- NOTE | 2020-08-27 16:41 | XR ---
EXAMINATION TYPE: XR chest 2V DATE OF EXAM: 08/27/2020 CLINICAL HISTORY: Preop testing. Tobacco abuse. TECHNIQUE: Frontal and lateral views of the chest are obtained. COMPARISON: None FINDINGS: The cardiomediastinal silhouette is within normal limits for size. Pulmonary vasculature i s normal. There is no focal air space opacity, pleural effusion, or pneumothorax seen. The osseous st ructures are intact. IMPRESSION: No acute cardiopulmonary process.
== END | disposition home or self-care (01) ==
LOC: RADXRMAIN 12:23
PROVIDERS: ATTEND Internal Medicine
DX: Z01.818 Encounter for other preprocedural examination (principal); Z72.0 Tobacco use
CPT/HCPCS: 71046

== ENCOUNTER 2020-09-04 13:29 | Day surgery (SDC) | payer BC ==
[2020-08-30 14:39] VITALS: BMI 24.2
[~2020-09-04 13:29] MED LIST: DEXAMETHASONE SOD PHOSPHATE 10 MG/ML 1 ML VIAL IV ONE; LIDOCAINE 1% (10MG/ML) FOR IV START INTRADERMA PRN; ceFAZolin 1,000 MG in SODIUM CHLORIDE 0.9% IRRIGATIO 1,000 ML IRRIGATION ONE
[2020-09-04] MEDS ORDERED: ONDANSETRON 4 MG/2 ML VIAL ONE (13:46)
[2020-09-04] MEDS: LACTATED RINGERS 1,000 ML IV SCH ×2 (13:55→22:30)
[2020-09-04] MEDS ORDERED: PROPOFOL 10 MG/ML 20 ML VIAL IV ONE (15:09)
[2020-09-04] MEDS ORDERED: HYDROmorphone (PF) 1 MG/ML ONE (15:09)
[2020-09-04] MEDS ORDERED: fentaNYL (PF) 50 MCG/ML 2 ML AMP ONE (15:09)
[2020-09-04] MEDS ORDERED: NEOSTIGMINE 1 MG/ML 10 ML VIAL ONE (15:09)
[2020-09-04] MEDS ORDERED: ROCURONIUM 10 MG/ML (10 ML VIAL) IV ONE (15:09)
[2020-09-04] MEDS ORDERED: SUCCINYLCHOLINE CHLORIDE 100 MG/5 ML SYR IV ONE (15:09)
[2020-09-04] MEDS ORDERED: MIDAZOLAM 2 MG/2 ML VIAL ONE (15:09)
[2020-09-04] MEDS ORDERED: LIDOCAINE 1% INJ 10MG/ML (20 ML MDV) ONE (15:09)
[2020-09-04] MEDS ORDERED: GLYCOPYRROLATE 0.2 MG/ML 2 ML VIAL ONE (15:09)
[2020-09-04] MEDS ORDERED: LIDOCAINE 1%-EPI 1:100,000 20 ML VIAL SQ ONE (15:52)
[2020-09-04] MEDS ORDERED: GELATIN SPONGE,ABSORB (LARGE) 1 EACH SPONGE MISCELLANE ONE (15:53)
[2020-09-04] MEDS ORDERED: THROMBIN (BOVINE) 5,000 UNIT VIAL TOPICAL ONE (15:53)
[2020-09-04] MEDS ORDERED: LACTATED RINGERS 1,000 ML IV ONE (16:42)
--- NOTE | 2020-09-04 16:45 | XR ---
Cervical spine HISTORY: Needle placement Single lateral view the cervical spine There is a needle present at the C5-6 disc space. Degenerative disc changes are present in the lower cervical spine. The entire cervical spine is not visualized. Endotracheal tube noted incidentally. IMPRESSION: Orthopedic localization
[2020-09-04] MEDS ORDERED: HYDROmorphone 1 MG/ML 1 ML SYRINGE IVP ONE ×4 (17:28→18:00)
[2020-09-04] MEDS ORDERED: HYDROcodone/APAP 5-325MG 1 EACH TAB PO PRN (17:29)
--- NOTE | 2020-09-04 17:35 | P.OP ---
Date of Procedure: 09/04/20 Preoperative Diagnosis: Herniated nucleus pulposis C5 6 C6 7, cervical stenosis C5 6 C6 7, degenerative disc disease C5 6 C6 7, upper extremity radiculopathy, upper extremity weakness, neck pain Postoperative Diagnosis: Same Anesthesia: GETA Pathology: none sent Condition: stable Disposition: PACU Description of Procedure: BRIEF OPERATIVE NOTE Preoperative Diagnosis:Herniated nucleus pulposis C5 6 C6 7, cervical stenosis C5 6 C6 7, degenerative disc disease C5 6 C6 7, upper extremity radiculopathy, upper extremity weakness, neck pain Postoperative Diagnosis:Herniated nucleus pulposis C5 6 C6 7, cervical stenosis C5 6 C6 7, degenerative disc disease C5 6 C6 7, upper extremity radiculopathy, upper extremity weakness, neck pain Procedure: Anterior cervical decompression with discectomy and fusion C5 6 C6 7 Placement of interbody graft C5 6 C6 7 Application of anterior cervical plate C5 6 C6 7 Surgeon: Dr. Hinojosa [employer] Operator: Edgard Zamudio is present throughout the entire the case persistence during positioning, dissection, exposure, visualization, and all crucial elements of the case as well as closure. Anesthesia: General anesthesia Estimated blood loss: Approximately 30 mL Complications: None apparent Components implanted: K2M Lynd anterior cervical plate system with 6 screws and 2 Vikos interbody allograft bone graft with 1 mL of DBX bone putty Disposition: To recovery room in good stable condition. OPERATIVE INDICATIONS The patient has had long-standing issues in their neck and upper extremities. His found have significant changes at his cervical spine with large anterior cervical and posterior osteophytes as well as disc herniations with cervical stenosis which correlated well with his neck and upper extremity symptoms. The patient has been through conservative treatment. We discussed various treatment options including surgery, and the patient wishes to proceed with surgery We discussed the risk, patient's alternatives and benefits of surgery including but not limited to, risk of bleeding risk of infection, risk of need for further surgery, risk of decreased, loss of motion, muscle function, malunion nonunion, hardware failure, nerve damage, paralysis, heart attack, and . OPERATIVE SUMMARY After discussing all the risks, patient alternatives and benefits at length, the patient elected to proceed with surgical intervention, signed informed consent, and presented for their procedure. The patient was seen and examined in the preoperative holding area and the surgical site was marked. The patient was given antibiotics and brought to the operating room. The patient was positioned on the operating room table in a supine position being careful to pad any bony prominences and pressure points. The patient was sedated and intubated by anesthesia in standard fashion. Once the airway and C- spine were stabilized the patient's arms were padded and tucked at her side, with her shoulders gently taped. The head was placed in a donut pad with the neck in good neutral alignment and position. We were careful to maintain the patient's cervical spine and good neutral alignment and position throughout. The patient was prepped and draped in a normal standard fashion. An appropriate timeout and keystone protocol performed. We were able to proceed with the s urgery. The local wound area was infiltrated with local anesthetic. An incision was made transversely approximately 2-1/2 cm over the appropriate levels at C6. Dissection was taken down subcutaneously to the level of the platysma which was split in line with its fibers. Dissection was taken with a carotid approach, with the trachea and esophagus medial and the carotid sheath laterally. We dissected down to the anterior surface of the vertebral bodies. Intraoperative x-ray was taken which showed a marker at the appropriate level at C5 6. With the appropriate level positively confirmed, we were able to proceed with discectomy at the appropriate levels starting at C5 6 and then removing the C6 7. All of the operative levels were exposed appropriately. The patient had all their twitches back, and there was no evidence of recurrent laryngeal issue. The wound was copiously irrigated and suctioned dry as had been done periodically throughout the case. At the appropriate level/levels, I had to remove the large anterior cervical osteophytes and then I established an annulotomy with an 11 blade scalpel. A discectomy was performed with a combination of pituitary rongeurs, curettes, a high-speed bur, and Kerrison rongeurs. The posterior longitudinal ligament was taken down as were any posterior osteophytes. This gave good central and bilateral foraminal decompression. There is no evidence of any dural tear or leak. The endplates were prepared with a high-speed bur. With the endplates in good parallel position, I was able to size for the appropriate size interbody graft. The wound was irrigated and suctioned dry the graft was prepared and malleted into position. It had good alignment and position with the anterior surface flush with the anterior surface of the vertebral bodies. This was done similarly the appropriate levels first at C5 6 and then at C6 7. With the grafts intact, I was able to measure and contour and appropriate sized plate. The plate was positioned at the midline over the appropriate levels at C5 6 and 7. Screw holes were established with a hand drill and drill guide. Screws were placed in good alignment and position with excellent bony purchase. They were seated under the locking device. The construct was checked and found to be stable. Intraoperative x-ray was taken which showed good alignment and position of the implants at the appropriate levels. There was no evidence of any dural tear or leak. Good hemostasis was maintained. The wound was copiously irrigated and suctioned dry as had been done periodically throughout the case. The platysma was closed with absorbable suture. The subcutaneous tissue was closed. The subcuticular tissue was closed with absorbable suture. The wound was cleaned and dried and dressed appropriately. A soft cervical collar was placed appropriately. The patient was woken up by anesthesia, extubated, transferred back gently to their hospital bed and brought to the recovery room in good stable condition. The patient will be admitted to the hospital for appropriate postoperative care, medical management and monitoring. We will continue to follow them closely about the postoperative course.
[2020-09-04] MEDS: ACETAMINOPHEN TAB 325 MG TAB PO PRN (19:35)
[2020-09-04] MEDS: HYDROmorphone 0.5 MG/0.5 ML SYRINGE IVP PRN (20:31)
[2020-09-04] MEDS: BENZOCAINE/MENTHOL LOZENG 1 EACH LOZENGE MUCOUS MEM PRN (20:37)
[2020-09-04] MEDS: SODIUM CHLORIDE 0.9% 1,000 ML IV SCH (21:21)
--- NOTE | 2020-09-04 22:21 | XR ---
EXAMINATION TYPE: XR cervical spine 1V DATE OF EXAM: 09/04/2020 COMPARISON: 09/04/2020 HISTORY: Screw placement TECHNIQUE: Single view lateral view FINDINGS: There is a plate with screws fusing anteriorly the cervical spine from C5 to C7. Vertebra h ave normal alignment. Detail limited by the shoulders. IMPRESSION: Anterior fusion surgery. No complicating process seen.
[2020-09-04] MEDS ORDERED: ZOLPIDEM 5 MG TAB PO PRN (22:24)
[2020-09-04] MEDS: HYDROcodone/APAP 10-325MG 1 EACH TAB PO PRN (22:52)
[2020-09-05] MEDS: HYDROmorphone 0.5 MG/0.5 ML SYRINGE IVP PRN ×3 (02:58→11:57)
[2020-09-05] MEDS: BENZOCAINE/MENTHOL LOZENG 1 EACH LOZENGE MUCOUS MEM PRN (03:03)
[2020-09-05 04:42] VITALS: BP 125/78; PULSE 68; RESP 18; TEMP 98.5
[2020-09-05] MEDS: ACETAMINOPHEN TAB 325 MG TAB PO PRN (05:33)
[2020-09-05] MEDS: HYDROcodone/APAP 10-325MG 1 EACH TAB PO PRN (06:10)
[2020-09-05] MEDS ORDERED: CYCLOBENZAPRINE 10 MG TAB PO PRN (08:04)
--- NOTE | 2020-09-05 08:07 | P.DS ---
Providers Date of admission: 09/04/20 Attending physician: John Hinojosa Primary care physician: Keyla Irving [facility] Course: The patient presented on the day of admission as per their operative note. He had severe disc degeneration and stenosis at C5 6 and C6 7 with neck pain and upper extremity radiculopathy and underwent his anterior cervical decompression with discectomy and fusion as per his operative note. He feels his arms are doing well. He is having soreness at the front and back his neck. He has been able to be up and around. He's breathing comfortably. Physical Exam The incision site is clean dry and intact. There is no erythema no drainage. There is no purulence no evidence of infection. His neck is soft and supple. Abdomen soft and nontender. Chest has good excursion with deep inspiration and expiration. The patient has active and passive range of motion intact at the upper and lower extremities. There is no acute change in neurologic status. He has full strength in his bilateral upper extremity. Hospital Course Postoperative day #1 status post anterior cervical decompression with discectomy and fusion C5 6 C6 7 for his cervical stenosis with severe disc degeneration and upper extremity radiculopathy. The patient has been making steady progress postoperatively. They have completed the prophylactic antibiotics without any signs or symptoms of infection. The patient has been able to advance their diet, and is tolerating diet adequately. The pain was initially controlled with IV medications and is now controlled appropriately with oral medications. The patient has been able to increase their mobilization. The patient has progressed appropriately. I think they are in good stable condition for discharge today. They will be sent home with appropriate prescriptions. I think that he can have some benefit with the addition of a muscle relaxer in addition to his Lambert 10. We will prescribe these for him. I answered their questions to the best of my ability in a language that they can understand and they are agreeable with the plan. They will follow up as directed in approximately 2 weeks or sooner if he is having problems. Patient Condition at Discharge: Good Plan - Discharge Summary Discharge Rx Participant: No New Discharge Prescriptions: New HYDROcodone/APAP 10-325MG [Lambert 10-325] 1 tab PO Q4HR PRN 7 Days #42 tab PRN Reason: Pain Cyclobenzaprine [Flexeril] 10 mg PO TID PRN #60 tab PRN Reason: Spasms No Action Hydrocodone/Acetaminophen [Lambert 5-325] 1 tab PO Q6HR PRN #12 tab PRN Reason: Pain Lemborexant [Dayvigo] 5 mg PO HS Discharge Medication List Hydrocodone/Acetaminophen [Lambert 5-325] 1 tab PO Q6HR PRN #12 tab 05/02/20 [Rx] Lemborexant [Dayvigo] 5 mg PO HS 08/30/20 [History] HYDROcodone/APAP 10-325MG [Lambert 10-325] 1 tab PO Q4HR PRN 7 Days #42 tab 09/04/20 [Rx] Cyclobenzaprine [Flexeril] 10 mg PO TID PRN #60 tab 09/05/20 [Rx] Follow up Appointment(s)/Referral(s): John Hinojosa DO [Doctor of Osteopathic Medicine] - 2 Weeks Activity/Diet/Wound Care/Special Instructions: Keep site clean. May shower with waterproof Tegaderm intact. Do not soak in a tub. After 72 hours postoperatively, patient May remove dressing and then may shower with area uncovered. Leave Steri-Strips intact and allow them to fray off on their own. May ambulate as tolerated. Avoid heavy or rigorous activity. No repetitive bending twisting or lifting. No overhead work. Discharge Disposition: HOME SELF-CARE
[2020-09-05] MEDS: SODIUM CHLORIDE 0.9% 1,000 ML IV SCH (08:51)
[2020-09-05] MEDS ORDERED: SENNOSIDES-DOCUSATE SODIUM 1 EACH TAB PO SCH (09:00)
== END 2020-09-05 12:48 | disposition home or self-care (01) ==
LOC: OR 13:29 → 6NMEDSUR 17:20 → OR 09-05 12:48
PROVIDERS: ATTEND Orthopaedic Surgery Orthopaedic Surgery of the Spine
DX: M50.122 Cervical disc disorder at C5-C6 level with radiculopathy (principal); M48.02 Spinal stenosis, cervical region; B85.0 Pediculosis due to Pediculus humanus capitis; R45.0 Nervousness; Z79.1 Long term (current) use of non-steroidal anti-inflammatories (NSAID); Z79.891 Long term (current) use of opiate analgesic; Z79.899 Other long term (current) drug therapy; Z88.5 Allergy status to narcotic agent; Z98.890 Other specified postprocedural states; Z82.49 Family history of ischemic heart disease and other diseases of the circulatory system; Z83.3 Family history of diabetes mellitus; Z72.0 Tobacco use
CPT/HCPCS: 72020; 22551; 22552; 22845; 20931; C1713 ×2; C1762; J2250; J2710; J0690 ×2; J2405; J2001; J3010; J1170 ×3; J0330; J2704

== ENCOUNTER → 2021-08-27 | Outpatient (CLI) | payer BC ==
--- NOTE | 2021-08-28 04:48 | MR ---
EXAMINATION TYPE: MR cervical spine wo/w con DATE OF EXAM: 08/27/2021 COMPARISON: HISTORY: Neck pain, numbness, headaches. Surgery Jul 2020. CONTRAST: Standard multiplanar, multisequence MRI departmental protocol utilizing 7.5 mL intravenous Gadavist g adolinium contrast. The cervical vertebra have normal alignment. There is metal artifact from anterior fusion surgery at C5 and C6 and C7. There is no evidence of any significant posterior cervical disc herniation. Cervica l spinal cord has normal signal pattern. There is no sign of edema. There is a mild anterior subluxat ion of C7 in relation to T1. There is minimal posterior disc bulging at C7-T1. Subluxation is 2 mm. T here is no cervical spinal stenosis. Spinal canal measures 9.5 mm at C7-T1 and C6-7 which is the narr owest point. There is no cervical paraspinal mass. Contrast images show no pathologic enhancement. Brainstem is in tact. Facet joints are intact. There is multilevel mild hypertrophic facet arthropathy. IMPRESSION: Multilevel fusion surgery. There is improvement in the spinal canal size compared to preoperative exa m. Spinal canal is narrowed to 7 mm at C6-7 on old exam and now measures 9.5 mm. There is a new mild C7-T1 subluxation deformity compared to old exam.
== END | disposition home or self-care (01) ==
LOC: RADMRIMAIN 14:33
PROVIDERS: ATTEND Orthopaedic Surgery Orthopaedic Surgery of the Spine
DX: M48.02 Spinal stenosis, cervical region (principal); Z98.1 Arthrodesis status
CPT/HCPCS: 72156; A9585

== ENCOUNTER → 2021-10-06 | Outpatient (CLI) | payer BC, OTHER ==
[2021-10-06 11:16] VITALS: BP 139/90; PULSE 85; RESP 18; TEMP 98
--- NOTE | 2021-10-06 12:19 | P.PAINCN ---
History of Present Illness - Reason for Consult Consult date: 10/06/21 - History of Present Illness Jamil is a 50-year-old male presenting to clinic today for initial evaluation of neck pain. He is a patient of Dr. Hinojosa'adelaida. He has a history of cervical fusion C4 to C7. He has a history of cervical spondylosis with facet arthropathy without myelopathy, cervical degenerative disc disease, and cervical radiculopathy. He had his surgery in 2019. Since her procedure his pain is been well controlled. However, in the last 4 months she's noticed increased pain in his neck that radiates down his left arm into his left hand. He describes it as a constant, shooting, sharp pain or he also feels pins and needles to his fingers. It's worse with lifting and certain positions including turning his head to the left side. Pain is made better with certain positions, interventions. Since the onset of his knee pain he's tried heat and ice with limited relief. He has not had any physical therapy normal size therapy. Dr. Hinojosa advised him not to seek dog daycare provider in 12 further treatment and evaluation. He rates his pain as 7 out of 10 on a 0-to-10 scale. Past Medical History Past Medical History: Osteoarthritis (OA) Additional Past Medical History / Comment(s): severe arthritis lumbar and cervical, insomnia History of Any Multi-Drug Resistant Organisms: None Reported Past Surgical History: Orthopedic Surgery Additional Past Surgical History / Comment(s): right leg anyi/screws Past Anesthesia/Blood Transfusion Reactions: No Reported Reaction Past Psychological History: Anxiety Smoking Status: Current every day smoker Past Alcohol Use History: None Reported Additional Past Alcohol Use History / Comment(s): 1 ppd since teens Past Drug Use History: Marijuana Additional Drug Use History / Comment(s): stated that he uses marijuana occasionally for pain reflief but "not very often", instructed to hold 24 hrs prior to procedure - Past Family History Father Family Medical History: Cancer Additional Family Medical History / Comment(s): prostate Medications and Allergies Home Medications Medication Instructions Recorded Confirmed Type Hydrocodone/Acetaminophen [[place] 1 tab PO Q6HR PRN #12 tab 05/02/20 10/06/21 Rx 5-325] Acetaminophen [Tylenol] 500 mg PO Q4-6H PRN 10/06/21 10/06/21 History Ibuprofen [Motrin] 600 mg PO Q6HR PRN 10/06/21 10/06/21 History Allergies Allergy/AdvReac Type Severity Reaction Status Date / Time ketorolac tromethamine Allergy Anaphylaxis Verified 10/06/21 11:16 [From Toradol] tramadol Allergy Anaphylaxis Verified 10/06/21 11:16 Physical Exam REVIEW OF ORGAN SYSTEMS: CONSTITUTIONAL: No fevers or chills. No recent weight loss. EYES: denies troubles with vision. HEENT: No difficulties with hearing. No nosebleeds. No difficulty swallowing. RESPIRATORY: Denies any troubles with breathing or dyspnea on exertion. CARDIOVASCULAR: Denies any chest pain, palpitations, or recent heart attacks. GASTROINTESTINAL: Denies fatty food intolerance. Has change in bowel habits and gas bloat. GENITOURINARY: Denies any blood in urine. Has increased urinary frequency. NEUROLOGICAL: + numbness and tingling along the distal e xtremities. No seizure disorders or headaches. MUSCULOSKELETAL: Has back pain. SKIN:no skin cancer. No rash. PSYCHIATRIC: Denies current depression or suicidal thoughts. ENDOCRINE: Denies current thyroid disorders. Denies any blood sugar glucose intolerance. HEME/LYMPHATIC: Denies any lumps and bumps around the neck. History of deep venous thrombosis. ALLERGY/IMMUNOLOGY: No immunoglobulin therapy. No immune deficiencies. BREAST: Denies current breast lumps, pain or nipple discharge. Physical Examinations : Constitutiona : Cooperative , not in acute distress . HEENT : nech : supple , no Lymphadenopathy , normal thyroid size . : eyes no ptosis , no icterus, no photophobia . : ENT normal of hearing , normal oropharynx , no Thrush . Respiratory : Chest clear to auscultations Bilaterally , no wheezing , no Rhonchi . Cardiovascula : regular rate and rhythem , S1 , S2 , no S3 , no S4. Gastrointestina : abdomen soft no tenderness , bowel sounds , no organomegally . Genitourinary : Defferred . neurologic : Cranial nerve II to XII intact , no focal neurological deffecit . psychatric : alert , oriented X 3 , appropriate affect , intact judgment and insight . Lymphatic : no Lymphadenopathy . musculoskeltal : Cervical Spine motor stregnth in the deltoid and biceps, normal right side , normal Left side motor stregnth biceps and the wrist extensors normal right side ,normal left side . motor stregnth in the triceps muscle . normal Right side , normal Left side deep tendon reflexes= normal at the biceps , normal at Brachioradialis , normal at triceps. cervical facet loading test: Positive Bilaterally Spurling test= positive bilaterally. Neck distraction test= positive bilaterally. Brayan sign= negative. Thoracic paraspinous muscles spasming left side . Assessment and Plan Assessment: Assessment and plan Assessment: Cervical spondylosis with facet arthropathy without myelopathy Cervical radiculopathy Cervical degenerative disc disease Status post cervical fusion pain Resting muscle spasm Plan: Patient could benefit from cervical epidural steroid injection at C7-T1 She could benefit from various trigger point injections left paraspinous muscles Dr. Norman was available by phone for consultation during his visit. I have spent 50 minutes on patient care today. The time was used to review the medical records including relevant urine studies and Prescription history (MAPs), review of the available imaging, evaluation and examination of the patient, coordination of care with the medical staff and if applicable referring physicians, as well as creation of the medical record. - PQRS measures = - Patient's medications are documented in the chart. -Tobacco use is positive and counseling.Given. -Patient's has not received pneumococcal vaccine. -Advanced care planning discussed, patient not eligible. -Opiate contract not signed. -Pain positive and follow-up visit/procedure is scheduled. -Patient's blood pressure measured 139/90 , and documented in the record ,and patient will follow up with the primary care. -Patient was not identified as an unhealthy alcohol user Time with Patient: Greater than 30 PQRS Measure Charge Sheet - Pain Location Left Neck Non-Pharmacological Interventions: Position/Reposition Pharmacological Interventions: PRN Medication PQRS Narrative: Smoking Status Current every day smoker Hx Alcohol Use (MH) No Home Medications: Ambulatory Orders Hydrocodone/Acetaminophen [[place] 5-325] 1 tab PO Q6HR PRN #12 tab 05/02/20 Acetaminophen [Tylenol] 500 mg PO Q4-6H PRN 10/06/21 Ibuprofen [Motrin] 600 mg PO Q6HR PRN 10/06/21
== END ==
LOC: PNWHC3 10:37
PROVIDERS: ATTEND Student in an Organized Health Care Education/Training Program
DX: M47.22 Other spondylosis with radiculopathy, cervical region (principal); M50.10 Cervical disc disorder with radiculopathy, unspecified cervical region; M62.838 Other muscle spasm; Z98.1 Arthrodesis status; M19.90 Unspecified osteoarthritis, unspecified site; F41.9 Anxiety disorder, unspecified; F12.90 Cannabis use, unspecified, uncomplicated; F17.210 Nicotine dependence, cigarettes, uncomplicated; Z88.6 Allergy status to analgesic agent
CPT/HCPCS: 99211

== ENCOUNTER 2021-10-30 11:25 | Day surgery (SDC) | payer BC, OTHER ==
[2021-10-29 10:21] VITALS: BMI 24.2
[~2021-10-30 11:25] MED LIST changes: -DEXAMETHASONE SOD PHOSPHATE 10 MG/ML 1 ML VIAL IV ONE; +LACTATED RINGERS 1,000 ML IV SCH; -LIDOCAINE 1% (10MG/ML) FOR IV START INTRADERMA PRN; -ceFAZolin 1,000 MG in SODIUM CHLORIDE 0.9% IRRIGATIO 1,000 ML IRRIGATION ONE
[2021-10-30 11:48] VITALS: TEMP 98
[2021-10-30] MEDS ORDERED: IOPAMIDOL M200 10 ML VIAL ONE (11:58)
[2021-10-30] MEDS ORDERED: ROPIVACAINE 5MG/ML 20ML VIAL ONE (11:58)
[2021-10-30] MEDS ORDERED: .fentaNYL (PF) 50 MCG/ML 2 ML AMP ONE (11:58)
[2021-10-30] MEDS ORDERED: DEXAMETHASONE SOD PHOSPHATE 10 MG/ML 1 ML VIAL ONE (11:58)
[2021-10-30] MEDS ORDERED: MIDAZOLAM 2 MG/2 ML VIAL ONE (11:58)
--- NOTE | 2021-10-30 12:18 | P.PCN ---
Date of Procedure: 10/30/21 Procedure(s) Performed: . PROCEDURE 1. Cervical epidural steroid injection under fluoroscopic guidance, C7-T1 (fluoroscopy images available in the radiology department ) 2. Cervical epidurogram. 3. Trigger point injection, left-sided cervical paraspinal muscles ,and left shoulder blade area ( total of 3 trigger point injected ) PREOPERATIVE DIAGNOSIS: 1- Cervical Degenerative Disc Diseases 2- Cervical radiculopathy., 3-cervical spondylosis with cervical Facet arthropathy without myelopathy 4-myofascial pain syndrome left side cervical paraspinal muscles and left shoulder blade area. POSTOPERATIVE DIAGNOSIS: : 1- Cervical Degenerative Disc Diseases , 2- Cervical radiculopathy. 3-,cervical spondylosis with cervical Facet arthropathy without myelopathy. 4-myofascial pain syndrome left side cervical paraspinal muscles and left shoulder blade area. ANESTHESIA: Local anesthesia with lidocaine 1 % , and moderate sedation, with Versed 2 mg and Fentanyl 50 mcg. EBL 0 PROCEDURE INDICATION: The patient with neck pain and radiculitis unresponsive to conservative treatment consents for procedure. PROCEDURE DESCRIPTION / TECHNIQUE: The patient was seen and identified in the preoperative area. Risks, benefits, complications, including but not limited to infections ,bleeding , allergic reactions to the medications ,and not complete pain releife, and alternatives were discussed with the patient, the patient agreed to proceed with the procedure and signed the consent. Patient was taken to the OR and time out was completed. The patient was placed in the prone position on the procedure table. A pillow was placed under the patients chest to increase the cervical interlaminar space. The cervical area was prepped and draped in the usual sterile fashion. Vital signs were closely monitored during the procedure. Conscious sedation was used during the procedure to decrease patients anxiety. Using anterior-posterior fluoroscopy, the C7-T1 interlaminar space was identified and the skin over this site was marked and then infiltrated with 1% lidocaine subcutaneously. Subsequently, a 20-gauge 3-1/2-inch Tuohy epidural needle was inserted and advanced toward the epidural space by means of the ``hanging-drop technique and guided by AP and lateral fluoroscopy. The correct needle position in the epidural space was verified with the injection of 2 mL of the water soluble contrast dye [id number]-200 and observing an excellent epidurogram with the epidural spread of the dye, after negative aspiration for blood and CSF and in the absence of paresthesias. then, mixture containing 20 mg Dexamethasone and 2 ml of preservative-free normal saline injected and a washout of epidurogram was seen. Needle was withdrawn intact, Then after the trigger point injection done several technique each of the trigger point that is identified in the left side cervical paraspinal muscles and left shoulder blade area, each of the trigger point injected with ropivacaine 0.5% 2 ml , using 25-gauge needle, injection done after negative aspiration ,and there was no paresthesia during the injection, patient tolerated the procedure well without complications Complications= none. Disposition= patient was placed in supine position and transferred to the recovery room area in stable condition and there was no evidence of upper or lower extremity motor or sensory deficit after the procedure patient was discharged from recovery room after discharge criteria met and home discharge instructions was given .
[2021-10-30] MEDS ORDERED: IV FLUID CONTINUATION 1,000 ML IV ONE (12:22)
[2021-10-30 12:28] VITALS: RESP 14
[2021-10-30 12:41] VITALS: BP 122/77; PULSE 77
--- NOTE | 2021-10-30 12:46 | FL ---
EXAMINATION TYPE: FL guided pain mgmt statistic DATE OF EXAM: 10/30/2021 HISTORY: Fluoroscopy time 2 seconds of fluoroscopy provided. IMPRESSION: 1. Fluoroscopy time.
== END 2021-10-30 12:56 | disposition home or self-care (01) ==
LOC: ORPAIN 11:25
PROVIDERS: ATTEND Specialist
DX: M54.2 Cervicalgia (principal); M50.10 Cervical disc disorder with radiculopathy, unspecified cervical region; M47.22 Other spondylosis with radiculopathy, cervical region; M79.18 Myalgia, other site; Z88.6 Allergy status to analgesic agent; Z88.5 Allergy status to narcotic agent
CPT/HCPCS: 20553; 62321; J2250; J1100; J3010; Q9966; J2795

== ENCOUNTER 2021-12-09 12:41 | Day surgery (SDC) | payer BC, OTHER ==
[2021-12-05 11:12] VITALS: BMI 24.2
[2021-12-09] MEDS: LACTATED RINGERS 1,000 ML IV SCH ×2 (13:11→13:44)
[2021-12-09 13:12] VITALS: TEMP 98.2
[2021-12-09] MEDS ORDERED: DEXAMETHASONE SOD PHOSPHATE 10 MG/ML 1 ML VIAL ONE (13:45)
[2021-12-09] MEDS ORDERED: ROPIVACAINE 5MG/ML 20ML VIAL ONE (13:45)
[2021-12-09] MEDS ORDERED: IOPAMIDOL M200 10 ML VIAL ONE (13:45)
[2021-12-09] MEDS ORDERED: fentaNYL (PF) 50 MCG/ML 2 ML AMP ONE (13:45)
[2021-12-09] MEDS ORDERED: MIDAZOLAM 2 MG/2 ML VIAL ONE (13:45)
--- NOTE | 2021-12-09 14:05 | P.PCN ---
Date of Procedure: 12/09/21 Procedure(s) Performed: PROCEDURE 1. Cervical epidural steroid injection under fluoroscopic guidance, C7-T1 (fluoroscopy images available in the radiology department ) 2. Cervical epidurogram. 3. Trigger point injection, left-sided cervical paraspinal muscles ,and left shoulder blade area ( total of 5 trigger point injected ) PREOPERATIVE DIAGNOSIS: 1- Cervical Degenerative Disc Diseases 2- Cervical radiculopathy., 3-cervical spondylosis with cervical Facet arthropathy without myelopathy 4-myofascial pain syndrome left side cervical paraspinal muscles and left shoulder blade area. POSTOPERATIVE DIAGNOSIS: : 1- Cervical Degenerative Disc Diseases , 2- Cervical radiculopathy. 3-,cervical spondylosis with cervical Facet arthropathy without myelopathy. 4-myofascial pain syndrome left si de cervical paraspinal muscles and left shoulder blade area. ANESTHESIA: Local anesthesia with lidocaine 1 % , and moderate sedation, with Versed 2 mg and Fentanyl 50 mcg. EBL 0 PROCEDURE INDICATION: The patient with neck pain and radiculitis unresponsive to conservative treatment consents for procedure. PROCEDURE DESCRIPTION / TECHNIQUE: The patient was seen and identified in the preoperative area. Risks, benefits, complications, including but not limited to infections ,bleeding , allergic reactions to the medications ,and not complete pain releife, and alternatives were discussed with the patient, the patient agreed to proceed with the procedure and signed the consent. Patient was taken to the OR and time out was completed. The patient was placed in the prone position on the procedure table. A pillow was placed under the patients chest to increase the cervical interlaminar space. The cervical area was prepped and draped in the usual sterile fashion. Vital signs were closely monitored during the procedure. Conscious sedation was used during the procedure to decrease patients anxiety. Using anterior-posterior fluoroscopy, the C7-T1 interlaminar space was identified and the skin over this site was marked and then infiltrated with 1% lidocaine subcutaneously. Subsequently, a 20-gauge 3-1/2-inch Tuohy epidural needle was inserted and advanced toward the epidural space by means of the ``hanging-drop technique and guided by AP and lateral fluoroscopy. The correct needle position in the epidural space was verified with the injection of 2 mL of the water soluble contrast dye Isovue-200 and observing an excellent epidurogram with the epidural spread of the dye, after negative aspiration for blood and CSF and in the absence of paresthesias. then, mixture containing 20 mg Dexamethasone and 2 ml of preservative-free normal saline injected and a washout of epidurogram was seen. Needle was withdrawn intact, Then after the trigger point injection done several technique each of the trigger point that is identified in the left side cervical paraspinal muscles and left shoulder blade area,( total 5 trigger points identeified )each of the trigger point injected with ropivacaine 0.5% 2 ml , using 25-gauge needle, injection done after negative aspiration ,and there was no paresthesia during the injection, patient tolerated the procedure well without complications Complications= none. Disposition= patient was placed in supine position and transferred to the recovery room area in stable condition and there was no evidence of upper or lower extremity motor or sensory deficit after the procedure patient was discharged from recovery room after discharge criteria met and home discharge instructions was given .
[2021-12-09] MEDS ORDERED: IV FLUID CONTINUATION 1,000 ML IV ONE (14:09)
--- NOTE | 2021-12-09 14:09 | FL ---
EXAMINATION TYPE: FL guided pain mgmt statistic DATE OF EXAM: 12/09/2021 HISTORY: Fluoroscopy time 3 seconds of fluoroscopy provided. IMPRESSION: 1. Fluoroscopy time.
[2021-12-09 14:26] VITALS: BP 124/85; PULSE 69; RESP 18
== END 2021-12-09 14:42 | disposition home or self-care (01) ==
LOC: ORPAIN 12:41
PROVIDERS: ATTEND Specialist
DX: M50.10 Cervical disc disorder with radiculopathy, unspecified cervical region (principal); M47.22 Other spondylosis with radiculopathy, cervical region; M79.18 Myalgia, other site
CPT/HCPCS: 20553; 62321; J2250; J1100; J3010; Q9966; J2795; 99152

== ENCOUNTER → 2022-02-26 | Outpatient (CLI) | payer BC, OTHER ==
[2022-02-26 13:40] VITALS: BP 137/84; PULSE 74; RESP 18; TEMP 98.4
--- NOTE | 2022-02-26 13:54 | P.PN ---
Subjective Progress Note Date: 02/26/22 Principal diagnosis: A 51 yr old male with a history of severe and chronic neck pain secondary to cervical degenerative disc diseases and spondylosis with facet arthropathy presents today for evaluation status post ELSI C7-T1 #2. Patient states he expressed 50% pain relief for one day status post procedure. Pain level is currently at 8 out of 10 in intensity, dull, achy in the lower aspects of the cervical spine with radiation of sharp shooting pain to the bilateral superior middle aspects of the trapezius. Patient also complains of occasional upper extremity tingling. Pain is provoked by rotation of the cervical spine. Pain is alleviated with medications, injections, chiropractic treatments the past, daily home exercise regimen, repositioning and rest. Interventional pain procedures completed include ELSI C7-T1 #2 Patient is currently on [place] from Dr Hinojosa Patient denies any side effects of the medication(s), denies excessive drowsiness or sleepiness, denies suicidal ideation and reports that the current pain medication is helping to control the pain and improve activities of daily living. Patient denies any motor or sensory deficits. Patient denies any fever or night sweats, denies any change in the bowel movements or urination. Physical Examination: -Constitutional: Cooperative. Not in acute distress . -HEENT: Neck is supple. No lymphadenopathy. No thyromegaly. Normal thyroid size. Eyes: No ptosis , no icterus, no photophobia. ENT: No auditory deficits. Normal oropharynx. No Thrush. - Respiratory: Chest clear to auscultations bilaterally. No wheezing. No rhonchi. - Cardiovascular: Regular rate and rhythm. S1 / S2 , no S3 , no S4. - Gastrointestinal: Abdomen soft no tenderness. Bowel sounds positive in all four quadrants. No organomegaly. - Genitourinary: Deferred. - Neurologic: Cranial nerve II to XII intact. No focal neurological deficits. - Psychatric: Alert & oriented x 3. Matching mood & appropriate affect. Judgment and insight intact. - Lymphatic: No Lymphadenopathy. - Musculoskeletal: Cervical spine: Muscle bulk/ tone/ strength in the bilateral upper extremities normal. Vertebral body tenderness to palpation over C7 Spurling test positive Distraction test positive Facet loading test cervical area positive. Lumbar spine: Motor bulk/ tone/ strength lower extremities , thigh and legs : 5/5 Deep tendon reflexes : Normal Knee Jerk. Normal Ankle Jerk . Vertebral body tenderness to palpation over Lumbar Facet Loading Test positive Straight Leg Raise: positive at 30 degrees right side/ left side Gaenslen's Test positive Sacral spine : Severe tenderness over the Sacroiliac joint: right side / left side Range of motion: Flexion of the lumbar spine <60 degrees Range of motion: Extension of the lumbar spine <20 degrees Gaenslen's Test positive Marvin test: positive right side / left side Assessment and plan: Chronic neck pain secondary to cervical degenerative disc disease , spondylosis with facet arthropathy without myelopathy Recommendation of ELSI C7-T1 #3. Risks, benefits of procedure discussed and patient verbalized understanding. Denies anticoagulant use. Denies medical history diabetes. All patient questions answered MAPS reviewed and it was appropriate. I have spent 31 minutes on patient care today. Dr Norman was available by phone for the evaluation of this patient. The time was used to review the medical records including relevant urine studies and Prescription history (MAPs), review of the available imaging, evaluation and examination of the patient, coordination of care with the medical staff and if applicable referring physicians, as well as creation of the medical record Objective - Vital Signs Vital signs: Vital Signs Temp 98.4 F 02/26/22 13:35 Pulse 74 02/26/22 13:35 Resp 18 02/26/22 13:35 BP 137/84 02/26/22 13:35 Pulse Ox 97 02/26/22 13:35 Intake & Output 02/25/22 02/26/22 02/26/22 18:59 06:59 18:59 Weight 79.379 kg PQRS Measure Charge Sheet Mode of Arrival: Ambulatory - Pain Location Neck Non-Pharmacological Interventions: Chiropractic Treatment, Home Exercise, Inactivity, Position/Reposition, Stretching Pharmacological Interventions: Epidural, PRN Medication PQRS Narrative: Smoking Status Current every day smoker Blood Pressure 137/84 Pain Intensity [Neck] 8 Scale Used Numeric (1 - 10) Hx Alcohol Use (MH) No Home Medications: Ambulatory Orders Hydrocodone/Acetaminophen [[place] 5-325] 1 tab PO Q6HR PRN #12 tab 05/02/20
== END ==
LOC: PNWHC3 02-12 13:25
PROVIDERS: ATTEND Specialist
DX: M50.30 Other cervical disc degeneration, unspecified cervical region (principal); M47.812 Spondylosis without myelopathy or radiculopathy, cervical region; G89.29 Other chronic pain; F17.200 Nicotine dependence, unspecified, uncomplicated; Z88.5 Allergy status to narcotic agent
CPT/HCPCS: 99211

== ENCOUNTER → 2022-03-26 | Day surgery (SDC) | payer BC ==
[2022-03-25 10:58] VITALS: BMI 25.0
[~2022-03-26] MED LIST changes: +IV FLUID CONTINUATION 800 ML IV ONE; +LIDOCAINE 1% (10MG/ML) FOR IV START INTRADERMA PRN
[2022-03-26 12:04] VITALS: RESP 16; TEMP 97.9
--- NOTE | 2022-03-26 13:08 | P.PCN ---
Date of Procedure: 03/26/22 Procedure(s) Performed: PREOPERATIVE DIAGNOSIS: 1-Cervical Spondylosis with Facet Arthropathy.without myelopathy. 2-cervical degenerative disc disease POSTOPERATIVE DIAGNOSIS: Same as preoperative diagnosis. PROCEDURES: Diagnostic bilateral C3, C4 , C5 medial branch blocks, with flu oroscopic guidance (fluoroscopy images available in radiology department ) ( to target the facet joint at bilateral C3-4 , C4- 5 ) ANESTHESIA: Monitored anesthesia care as per anesthesia department ,moderate sedation with Versed 2 mg , and fentanyl 100 micrograms EBL: Minimal PROCEDURE INDICATION: The patient with neck pain secondary to cervical arth ropathy unresponsive to more conservative treatments. PROCEDURE DESCRIPTION / TECHNIQUE: The patient was seen and identified in the preoperative area. Risks, benefits, complications, and alternatives were discussed with the patient, the patient agreed to proceed with the procedure and signed the consent. IV was started. Vital signs remained stable throughout the procedure. Patient was taken to the OR and time out was completed. The patient was placed in the prone position on the procedure table. A pillow was placed under the patients chest to increase the cervical interlaminar space. The cervical area was prepped and draped in the usual sterile fashion. Critical pause was taken. Vital signs were closely monitored during the procedure. Conscious sedation was used during the procedure to decrease patients anxiety. Using cross-table lateral fluoroscopy, the centroid of the trapezoid of right C3, C4 , C5 was identified, marked, and localized with 1% lidocaine 1 ml at each level for skin and Sub Q infiltrations . Subsequently, a 22 G 3spinal needle was advanced guided by fluoroscopy to the centroid of the trapezoid of Right C3, C4 , C5, C6 . Pima tip position was confirmed at the centroid of the trapezoids of Right C3 , C4 , C5 with anteroposterior fluoroscopy. Subsequently, 1.5 ml of preservative-free Ropivacaine 0.5% mixed with Depo- Medrol 40 mg and half ml of the mixture was injected after negative aspiration for blood and CSF. [place] was then removed intact the same procedure was repeated at the left C3 , C4 , C5 , levels. COMPLICATIONS: No acute complications. DISPOSITION / PLANS: The patient was placed in a supine position and transferred to the recovery area in a stable condition for observation and was discharged from the recovery room after meeting discharge criteria. Home discharge instructions given to the patient by the staff. The patient was reexamined prior to discharge. The patient will schedule a follow up in the clinic in 2-4 weeks. note= patient diagnosed with cervical degenerative disc disease, cervical spondylosis with cervical facet arthropathy, and had cervical fusion surgery at C5 6 and C6 7 levels, and previously we have done cervical epidural steroid injections 2, he reported that he got 50% improvement of his pain level after each injection and the pain relief lasted only for 1 day after each injection, and patient was scheduled to have suffered cervical epidural steroid injection, and in the preop holding area , he was examined Physical Examinations : -Constitutiona : Cooperative , not in acute distress . -HEENT : nech : supple , no Lymphadenopathy , normal thyroid size . : eyes : no ptosis , no icterus, no photophobia . - neurologic : Cranial nerve II to XII intact , no focal neurological deffecit . -psychatric : alert , oriented X 3 , appropriate affect , intact judgment and insight . -Lymphatic : no Lymphadenopathy . - musculoskeltal : Cervical Spine motor stregnth in the deltoid and biceps, normal right side , normal Left side motor stregnth biceps and the wrist extensors normal right side ,normal left side . motor stregnth in the triceps muscle . normal Right side , normal Left side deep tendon reflexes normal at the biceps , normal at Brachioradialis , normal at triceps. cervical facet loading test: Positive Bilaterally Spurling test= positive Right , positive left. Neck distraction test= positive Right , positive left. Brayan sign= positive right, positive left . Lumber spine moter stegnth lower extremities ,thigh and legs 5/5 Right side , 5/5 Left side Assessment and plan=1-cervical spondylosis with cervical facet arthropathy. 2-cervical degenerative disc disease. 3-history of cervical fusion at C5 6 and C6 7 level. Patient had minimal and short and benefit from cervical epidural steroid injection x2 (at 50% improvement for 24 hours after each injection ) Patient could benefit from diagnostic medial branch block cervical area at C3 4 and C4 5 x2, and will proceed with RFA if he had a positive result
--- NOTE | 2022-03-26 13:15 | FL ---
EXAMINATION TYPE: FL guided pain mgmt statistic DATE OF EXAM: 03/26/2022 HISTORY: Fluoroscopy time 8 seconds of fluoroscopy provided. IMPRESSION: 1. Fluoroscopy time.
[2022-03-26 13:30] VITALS: BP 122/68; PULSE 70
== END ==
LOC: ORPAIN 11:21
PROVIDERS: ATTEND Specialist
DX: M47.812 Spondylosis without myelopathy or radiculopathy, cervical region (principal)
CPT/HCPCS: 62321; 99152; 99153

== ENCOUNTER 2022-05-15 12:47 | Day surgery (SDC) | payer BC ==
[2022-05-13 15:23] VITALS: BMI 24.2
[~2022-05-15 12:47] MED LIST changes: -IV FLUID CONTINUATION 800 ML IV ONE
[2022-05-15 13:05] VITALS: TEMP 97.4
[2022-05-15] MEDS ORDERED: methylPREDNISolone ACETATE 40 MG/ML 1 ML VIAL ONE (13:31)
[2022-05-15] MEDS ORDERED: ROPIVACAINE 5MG/ML 20ML VIAL ONE (13:31)
[2022-05-15] MEDS ORDERED: MIDAZOLAM 2 MG/2 ML VIAL ONE (13:31)
[2022-05-15] MEDS ORDERED: fentaNYL (PF) 50 MCG/ML 2 ML AMP ONE (13:31)
--- NOTE | 2022-05-15 13:50 | P.PCN ---
Date of Procedure: 05/15/22 Procedure(s) Performed: PREOPERATIVE DIAGNOSIS: 1-Cervical Spondylosis with Facet Arthropathy.without myelopathy. 2-cervical degenerative disc disease POSTOPERATIVE DIAGNOSIS: Same as preoperative diagnosis. PROCEDURES: Diagnostic bilateral C3, C4 , C5 medial branch blocks, with flu oroscopic guidance (fluoroscopy images available in radiology department ) ( to target the facet joint at bilateral C3-4 , C4- 5 )# 2nd ANESTHESIA: Monitored anesthesia care as per anesthesia department ,moderate sedation with Versed 2 mg , and fentanyl 100 micrograms EBL: Minimal PROCEDURE INDICATION: The patient with neck pain secondary to cervical arthropathy unresponsive to more conservative treatments. PROCEDURE DESCRIPTION / TECHNIQUE: The patient was seen and identified in the preoperative area. Risks, benefits, complications, and alternatives were discussed with the patient, the patient agreed to proceed with the procedure and signed the consent. IV was started. Vital signs remained stable throughout the procedure. Patient was taken to the OR and time out was completed. The patient was placed in the prone position on the procedure table. A pillow was placed under the patients chest to increase the cervical interlaminar space. The cervical area was prepped and draped in the usual sterile fashion. Critical pause was taken. Vital signs were closely monitored during the procedure. Conscious sedation was used during the procedure to decrease patients anxiety. Using cross-table lateral fluoroscopy, the centroid of the trapezoid of right C3, C4 , C5 was identified, marked, and localized with 1% lidocaine 1 ml at each level for skin and Sub Q infiltrations . Subsequently, a 22 G 3spinal needle was advanced guided by fluoroscopy to the centroid of the trapezoid of Right C3, C4 , C5, C6 . Hitchcock tip position was confirmed at the centroid of the trapezoids of Right C3 , C4 , C5 with anteroposterior fluoroscopy. Subsequently, 1.5 ml of preservative-free Ropivacaine 0.5% mixed with Depo- Medrol 20 mg and half ml of the mixture was injected after negative aspiration for blood and CSF. [place] was then removed intact the same procedure was repeated at the left C3 , C4 , C5 , levels. COMPLICATIONS: No acute complications. DISPOSITION / PLANS: The patient was placed in a supine position and transferred to the recovery area in a stable condition for observation and was discharged from the recovery room after meeting discharge criteria. Home discharge instructions given to the patient by the staff. The patient was reexamined prior to discharge. The patient will schedule a follow up in the clinic in 2-4 weeks.
--- NOTE | 2022-05-15 13:56 | FL ---
EXAMINATION TYPE: FL guided pain mgmt statistic DATE OF EXAM: 05/15/2022 HISTORY: Fluoroscopy time 18 seconds of fluoroscopy provided. IMPRESSION: 1. Fluoroscopy time.
[2022-05-15] MEDS ORDERED: IV FLUID CONTINUATION 900 ML IV ONE (13:57)
[2022-05-15 13:59] VITALS: RESP 16
[2022-05-15 14:12] VITALS: BP 121/76; PULSE 77
== END 2022-05-15 14:28 | disposition home or self-care (01) ==
LOC: ORPAIN 12:47
PROVIDERS: ATTEND Specialist
DX: M47.812 Spondylosis without myelopathy or radiculopathy, cervical region (principal); M50.30 Other cervical disc degeneration, unspecified cervical region; F17.210 Nicotine dependence, cigarettes, uncomplicated; Z88.6 Allergy status to analgesic agent; Z80.42 Family history of malignant neoplasm of prostate
CPT/HCPCS: 64490; 64491; J2250; J1030; J3010; J2795